=== PATIENT | female | born 1975 | race Caucasian/White ===

== ENCOUNTER 2016-11-05 15:15 | Emergency (ER) | payer OTHER ==
[~2016-11-05] VITALS: Ht 170.2 cm; Wt 50.3 kg
[~2016-11-05 15:15] MED LIST: AZIT250T PO; NICO21DI12 TOP
[2016-11-05 15:20] VITALS: TEMP 37.1; Ht 170.2 cm; Wt 50.3 kg
[2016-11-05] MEDS ORDERED: HYDROmorphone INJ 2 MG/ML SYR/VIAL IM STA (15:42)
[2016-11-05] MEDS ORDERED: PROMETHAZINE HCL INJ 25 MG/ML 1 ML VIAL IM STA (15:42)
--- NOTE | 2016-11-05 16:06 | EMERGENCY ROOM VISIT NOTE ---
ED Visit Note First contact with patient: 15:32 CHIEF COMPLAINT: Migraine headache HISTORY OF PRESENT ILLNESS: This 41-year-old female patient presented to the emergency department ambulatory with a gradual onset of a severe generalized headache that started 5 days ago. The patient states the migraine is similar to their typical migraines. There has been associated photophobia, phonophobia, nausea and vomiting. The patient denies fever or chills recently, and there is no weakness or numbness of the extremities. There is no difficulty with speech or vision. No trauma to the head and no neck pain. The pain is severe, constant , and it is slowly increasing in severity. The patient rates the pain as throbbing and and 10/10. The patient has taken acetaminophen without relief. This is not the worst headache of the life and is similar to previous migraines. Previous imaging studies of the brain have been normal. REVIEW OF SYSTEMS: A review of systems was performed with positives and pertinent negatives listed in the history of present illness. All other systems were reviewed and are negative. ALLERGIES: Garlic, metronidazole, penicillins, sulfa drugs MEDICATIONS: See med list PMH: Migraine headaches, asthma, COPD SOCIAL HISTORY: The patient lives locally with her family. She is a smoker and admits to occasional alcohol use. PHYSICAL EXAM: Vital Signs: Reviewed Nurse's notes, vital signs stable. GENERAL : This is a 41-year-old female, who appears in pain, but non toxic in appearance and in no acute distress. MENTAL STATUS: Alert, oriented, and coherent. HEENT: Normocephalic. PERRLA. EOMI. Nares patent without nuchal rigidity. Tympanic membranes pearly perkins without erythema or effusion bilaterally. Mucous membranes moist. NECK: Supple, no nuchal rigidity, nontender, no lymphadenopathy. HEART: Regular rhythm and normal rate without murmurs, ectopy, gallops, or rubs. LUNGS: Clear to auscultation bilaterally without wheezes, rales or rhonchi. No dullness to percussion. No accessory muscle use. No retractions. SKIN: Normal. NEUROLOGICAL: Pupils are round, equal and react to light. The optic fundi are normal and the discs are flat. The patient moves all extremities well and the gait is normal. EMERGENCY DEPARTMENT COURSE: I examined the patient. The patient is on a 2 narcotic injection per month treatment plan for their migraines. The patient was given 2 mg Dilaudid IM and 25 mg Phenergan IM per their usual protocol. The differential diagnosis includes acute intracranial bleed, meningitis, encephalitis, mass or mass effect, sinusitis, infection, tumor, headache, temporal arteritis and carbon monoxide exposure, and migraine. The patient was discharged home in stable condition with her driving. DIAGNOSIS: Migraine headache Problem List Medical Problems: (1) Asthma Status: Chronic (2) Bronchitis Status: Resolved (3) Chronic obstructive lung disease Status: Chronic (4) emphysema Status: Chronic (5) Gastroparesis Status: Chronic (6) H/O endoscopy Status: Resolved (7) Irritable Bowel Syndrome Status: Chronic (8) Migraine Status: Chronic (9) Removal of ovarian cyst Status: Resolved Current/Historical Medications Scheduled Amitriptyline HCl (Amitriptyline HCl), 40 MG PO HS Bromocriptine Mesylate (Bromocriptine Mesylate), 2.5 MG PO BID Fluticasone Furoate-Vilanterol (Breo Ellipta), 2 PUFFS INH DAILY Mirtazapine (Remeron), 30 MG PO HS Montelukast Sod (Montelukast Sodium), 10 MG PO DAILY Paroxetine (Paroxetine HCl), 40 MG PO DAILY Ranitidine (Zantac), 300 MG PO HS Temazepam (Restoril), 30 MG PO HS Tiotropium [place] (Spiriva Handihaler), 1 CAP INH DAILY Scheduled PRN Acetaminophen (Extra Strength Acetaminop), 1,000 MG PO Q6H PRN for Pain Budesonide Soln (Pulmicort Respules 0.5MG/2ML), 1 VIAL NEB BID PRN for SOB/ Wheezing Doxycycline Hyclate (Doxycycline Hyclate), 100 MG PO BID PRN for RESCUE KIT Ipratropium-Albuterol (Duoneb), 1 VIAL NEB QID PRN for SOB/Wheezing Potassium Chloride (Micro-K Ext Rel), 10 MEQ PO DAILY PRN for PRN Allergies Coded Allergies: Metronidazole (Verified Allergy, Intermediate, RASH, 10/09/16) Penicillins (Verified Allergy, Intermediate, RASH, 10/09/16) Sulfa Drugs (Verified Allergy, Unknown, HIVES, 10/09/16) Garlic (Verified Adverse Reaction, Mild, GI SYMPTOMS, 10/09/16) Pt states that she avoids garlic in foods because it causes nausea Vital Signs Date Time Temp Pulse Resp B/P Pulse Ox O2 Delivery O2 Flow Rate FiO2 11/05/16 15:20 37.1 103 17 119/79 100 Room Air Medications Administered Medications (Trade) Dose Ordered Sig/Susan Route Start Time Stop Time Status Last Admin Dose Admin Hydromorphone HCl (Dilaudid Inj) 2 mg NOW STAT IM 11/05/16 15:42 11/05/16 15:44 DC 11/05/16 15:54 2 MG Promethazine HCl (Phenergan Inj) 25 mg NOW STAT IM 11/05/16 15:42 11/05/16 15:44 DC 11/05/16 15:54 25 MG Departure Information Impression Primary Impression: Migraine Dispostion Home / Self-Care Condition GOOD Referrals No Doctor, Assigned (PCP) Patient Instructions A Signature Page, [facility] Additional Instructions You have been treated in the Emergency Department for a Headache. You have received pain medicine in the emergency department which impairs your ability to operate a vehicle. It is illegal for you to drive after receiving these medicines. Follow-up with your primary care provider and neurologist as scheduled. Return to the Emergency Department if your current symptoms worsen despite treatment course outlined above, or if you develop any of the following symptoms : intractable pain despite aforementioned treatment course, visual disturbances , loss of vision, unilateral weakness or facial drooping, slurring of speech, loss of coordination, or loss of consciousness.
[2016-11-05 16:32] VITALS: BP 123/75; PULSE 75; O2SAT 100
[2016-11-05] MEDS ORDERED: BUDE0.5S NEB (17:11)
[2016-11-05] MEDS ORDERED: DOXY1TAB6 PO (17:11)
[2016-11-05] MEDS ORDERED: IPRASOL4 NEB (17:11)
[2016-11-05] MEDS ORDERED: POTA10CA28 PO (17:20)
[2016-11-05] MEDS ORDERED: AMT10 PO (17:37)
[2016-11-05] MEDS ORDERED: PRX/40 PO (17:37)
[2016-11-05] MEDS ORDERED: SPRIN/30 INH (17:37)
[2016-11-05] MEDS ORDERED: FLUT1INH INH (17:37)
[2016-11-05] MEDS ORDERED: MIRT30TA3 PO (17:37)
[2016-11-05] MEDS ORDERED: SNG10 PO (17:37)
[2016-11-05] MEDS ORDERED: RST/30 PO (19:05)
[2016-11-05] MEDS ORDERED: RANI300T2 PO (20:55)
[2016-11-05] MEDS ORDERED: ACET500C14 PO (21:12)
[2017-05-05] MEDS ORDERED: MIRT15TA3 PO (13:59)
[2017-05-05] MEDS ORDERED: PRT/40 PO (16:52)
[2017-05-05] MEDS ORDERED: POLY335019 PO (18:59)
[2017-05-05] MEDS ORDERED: ALBU18002 INH (18:59)
[2017-05-05] MEDS ORDERED: ALUM-80 PO (18:59)
[2017-05-05] MEDS ORDERED: IPRASOL4 INH (18:59)
[2017-05-05] MEDS ORDERED: MAGN400T6 PO (18:59)
[2017-05-05] MEDS ORDERED: MULT-506 PO (18:59)
[2017-05-05] MEDS ORDERED: RIBO1TAB4 PO (18:59)
[2017-05-05] MEDS ORDERED: CALC500C3 PO (18:59)
[2017-05-05] MEDS ORDERED: PRLD25 PO (21:32)
== END 2016-11-05 16:34 | disposition home or self-care (01) ==
LOC: C.EDB 15:16 → C.EDD 16:34
DX: G43.909 Migraine, unspecified, not intractable, without status migrainosus (principal); J44.9 Chronic obstructive pulmonary disease, unspecified; F17.210 Nicotine dependence, cigarettes, uncomplicated; K31.84 Gastroparesis; K58.9 Irritable bowel syndrome, unspecified; Z79.899 Other long term (current) drug therapy

== ENCOUNTER 2016-12-01 13:15 | Emergency (ER) | payer OTHER ==
[~2016-12-01] VITALS: Ht 170.2 cm; Wt 50.8 kg
[~2016-12-01 13:15] MED LIST changes: +ACET500C14 PO; +AMT10 PO; -AZIT250T PO; +BUDE0.5S NEB; +DOXY1TAB6 PO; +FLUT1INH INH; +IPRASOL4 NEB; +MIRT30TA3 PO; -NICO21DI12 TOP; +POTA10CA28 PO; +PRX/40 PO; +RANI300T2 PO; +RST/30 PO; +SNG10 PO; +SPRIN/30 INH
[2016-12-01 13:21] VITALS: TEMP 36.5; Ht 170.2 cm; Wt 50.8 kg
[2016-12-01] MEDS ORDERED: PROMETHAZINE HCL INJ 25 MG/ML 1 ML VIAL IM STA (13:36)
[2016-12-01] MEDS ORDERED: HYDROmorphone INJ 2 MG/ML SYR/VIAL IM ONE (13:45)
[2016-12-01] MEDS ORDERED: PARO10TA PO (13:59)
[2016-12-01] MEDS ORDERED: TOPI25TA10 PO ×2 (14:00)
[2016-12-01] MEDS ORDERED: PANT1TAB48 PO (14:00)
[2016-12-01 14:20] VITALS: BP 118/76; PULSE 78; O2SAT 99
--- NOTE | 2016-12-02 12:54 | EMERGENCY ROOM VISIT NOTE ---
ED Visit Note First contact with patient: 13:22 CHIEF COMPLAINT: Migraine headache. HISTORY OF PRESENT ILLNESS: Ms. Castillo is a 41 year-old white female who ambulates into the ED accompanied by her complaining of a migraine headache. She reports a gradual onset of a severe migraine headache that started approximately 14 days ago. Her discomfort was initially mild but has gradually increased in intensity. Similar to her previous migraine headaches and not the worst headache of the life. Currently she describes the headache as a throbbing sensation/pain in the bifrontal area. She rates the pain a 10/10. The pain is nonradiating. She has not identified any aggravating or alleviating factors related to the pain. She reports she was recently started on Topamax for her migraine headaches by a new primary care provider but has had no relief and feel the symptoms are getting worse. There is been associated light sensitivity, nausea and has had vomiting. She denies chills, sweats, sore throat, sinus drainage/congestion, shortness of breath, wheezing, difficulty breathing, chest pain/discomfort, weakness/ numbness of the extremities, genital paresthesias, bowel and bladder dysfunction , hematuria, difficulty with speech, hearing or vision, trauma to the head. REVIEW OF SYSTEMS: As noted above in History of Present Illness. All body systems were reviewed with this patient and found to be negative unless noted above otherwise. PAST MEDICAL HISTORY: Asthma, COPD, bronchitis, gastroparesis, irritable bowel syndrome. CURRENT MEDICATIONS: Medications Dose Route/Sig Max Daily Dose Days Date Category Dose Instructions Topamax (Topiramate) 25 Mg Tab 1 Tab PO QPM 30 12/01/16 Reported Topamax (Topiramate) 25 Mg Tab 2 Tab PO QAM 30 12/01/16 Reported Protonix (Pantoprazole) 40 Mg Tab 40 Mg PO BID 12/01/16 Reported Paxil (Paroxetine Hcl) 10 Mg Tab 10 Mg PO DAILY 12/01/16 Reported Remeron (Mirtazapine) 15 Mg Tab 15 Mg PO HS 12/01/16 Reported Extra Strength Acetaminop (Acetaminophen) 500 Mg Cap 1,000 Mg PO Q6H PRN 06/11/16 Reported Micro-K Ext Rel (Potassium Chloride) 10 Meq Capcr 10 Meq PO DAILY PRN 05/03/16 Reported Zantac (Ranitidine HCl) 300 Mg Tab 300 Mg PO HS 02/16/16 Reported Duoneb (Ipratropium-Albuterol) 3 Ml Nebu 1 Vial NEB QID PRN 09/15/15 Reported Pulmicort Respules 0.5MG/2ML (Budesonide) Nebu 1 Vial NEB BID PRN 09/15/15 Reported MIX WITH DUONEB. Bromocriptine Mesylate 2.5 Mg Tab 2.5 Mg PO BID 08/11/15 Reported Breo Ellipta (Fluticasone Furoate-Vilanterol) 1 Inh Inh 2 Puffs INH DAILY 08/04/15 Reported RINSE MOUTH AFTER USE. Spiriva Handihaler (Tiotropium [place]) 30 Puff/540 Mcg Aerp 1 Cap INH DAILY 08/04/15 Reported ALLERGIES TO MEDICATIONS: Sulfa, penicillin, metronidazole. SOCIAL HISTORY: Patient is not currently employed; she lives with her and feels safe in her home environment; she admits to tobacco use and denies alcohol use. PHYSICAL EXAM: Vital Signs: Date Time Temp Pulse Resp B/P Pulse Ox O2 Delivery O2 Flow Rate FiO2 12/01/16 14:20 78 15 118/76 99 12/01/16 13:21 36.5 110 16 129/83 95 Room Air GENERAL: 41 year-old white female in moderate distress due to pain, afebrile and hemodynamically stable found lying in a darkened room accompanied by her . NEUROLOGIC: Awake, alert and oriented to person place and time. Answering questions appropriately and following commands. Cranial nerves II-XII grossly intact. No focal neurologic deficits noted. Normal gait. SKIN: Warm, dry and pink. No rashes, lesions or soft tissue trauma noted. HEENT: Normocephalic, atraumatic. No erythema or tenderness over the frontal maxillary sinuses. External and ears are nontender and auditory canals are pink and patent. Tympanic membrane is pearly perkins with normal light reflex. PERRLA. EOMI without nystagmus. Funduscopic examination deferred due to patient's light sensitivity. Sclerae white and conjunctiva pink without drainage. Uvula is midline and no abscesses are seen. No posterior pharyngeal erythema or edema. Normal speech. Airway patent. No JVD. Trachea midline. NECK: No tenderness over the cervical bony spine. Full range of motion of the cervical spine. No nuchal rigidity. THORAX: Lungs clear to auscultation and equal bilaterally with no wheezing, crackles, rhonchi or stridor and equal chest wall movements. HEART: Regular rate and rhythm with no murmurs, rubs or gallops. ABDOMEN: Flat and soft with mild diffuse tenderness; similar to prior examinations. Positive bowel sounds present in all quadrants; no rigidity, rebound tenderness, organomegaly or guarding. BACK: No tenderness over the bony thoracic or lumbar spine. No CVA tenderness. MUSCULOSKELETAL: Full range of motion of all joints without any significant discomfort and the gait is normal. ED COURSE: Patient is assessed with history and physical examination. Patient is currently on her treatment plan of 2 shots per month and this is her first visit. She received 2 mg of Dilaudid IM and 25 mg of Phenergan IM for pain and nausea. Patient was reassessed. Patient was educated about her condition and instructed on her treatment plan; she verbalized understanding and agreement with this plan. CLINICAL IMPRESSION: Acute migraine headache. 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 She is afebrile, well appearing, and hemodynamically stable. She has no signs of a dental, or ear infection and no evidence of meningismus. She is neurologically intact. I do not suspect a headache to be secondary to a subarachnoid hemorrhage, meningitis, encephalitis, or intracranial mass lesion. DISPOSITION: Patient was discharged to home in stable condition accompanied by her ; prior to discharge she was reassessed and reported that she was feeling better and rated her discomfort 7/10. DISCHARGE INSTRUCTIONS: Rest at home, in a quiet darkened room and allow the medication to work for the pain. Continue to follow up current treatment plan prescribed by your physician for your migraine headaches. See your own doctor in follow-up this week for continued care and treatment for her migraine headaches. Return to the ED as needed for worsening/uncontrolled pain, fever, uncontrolled vomiting, any abnormal neurological symptoms or any other concerning symptoms.
[2017-05-05] MEDS ORDERED: MIRT15TA3 PO (13:59)
[2017-05-05] MEDS ORDERED: PRT/40 PO (16:52)
[2017-05-05] MEDS ORDERED: IPRASOL4 INH (18:59)
[2017-05-05] MEDS ORDERED: ALUM-80 PO (18:59)
[2017-05-05] MEDS ORDERED: ALBU18002 INH (18:59)
[2017-05-05] MEDS ORDERED: MULT-506 PO (18:59)
[2017-05-05] MEDS ORDERED: POLY335019 PO (18:59)
[2017-05-05] MEDS ORDERED: RIBO1TAB4 PO (18:59)
[2017-05-05] MEDS ORDERED: MAGN400T6 PO (18:59)
[2017-05-05] MEDS ORDERED: CALC500C3 PO (18:59)
[2017-05-05] MEDS ORDERED: PRLD25 PO (21:32)
== END 2016-12-01 14:21 | disposition home or self-care (01) ==
LOC: C.EDB 13:17 → C.EDD 14:21
DX: G43.909 Migraine, unspecified, not intractable, without status migrainosus (principal); F17.200 Nicotine dependence, unspecified, uncomplicated; J45.909 Unspecified asthma, uncomplicated; J44.9 Chronic obstructive pulmonary disease, unspecified; Z79.899 Other long term (current) drug therapy

== ENCOUNTER 2016-12-20 17:42 | Emergency (ER) | payer OTHER ==
[~2016-12-20] VITALS: Ht 171.5 cm; Wt 52.2 kg
[~2016-12-20 17:42] MED LIST changes: -AMT10 PO; -DOXY1TAB6 PO; -MIRT30TA3 PO; +PANT1TAB48 PO; +PARO10TA PO; -PRX/40 PO; -RST/30 PO; -SNG10 PO; +TOPI25TA10 PO
[2016-12-20 17:47] VITALS: TEMP 37.1; Ht 171.5 cm; Wt 52.2 kg
[2016-12-20] MEDS ORDERED: PROMETHAZINE HCL INJ 25 MG/ML 1 ML VIAL IM STA (18:06)
[2016-12-20] MEDS ORDERED: HYDROmorphone INJ 1 MG/ML SYR IM ONE (18:15)
--- NOTE | 2016-12-20 18:39 | EMERGENCY ROOM VISIT NOTE ---
ED Visit Note First contact with patient: 17:49 CHIEF COMPLAINT: Migraine headache HISTORY OF PRESENT ILLNESS: This 39-year-old female patient presented to the emergency department with her relative with a gradual onset of a severe generalized headache that started Friday. The patient states the migraine is similar to their typical migraines. There has been associated photophobia, phonophobia, nausea and vomiting. The patient denies fever or chills recently, and there is no weakness or numbness of the extremities. There is no difficulty with speech or vision. No trauma to the head and no neck pain. The pain is severe, constant, and it is slowly increasing in severity. The patient rates the pain as constant and 10/10. The patient has taken ibuprofen without relief. This is not the worst headache of the life and is similar to previous migraines. Previous imaging studies of the brain have been normal. REVIEW OF SYSTEMS: A review of systems was performed with positives and pertinent negatives listed in the history of present illness. All other systems were reviewed and are negative. ALLERGIES: Garlic, Flagyl, penicillins, sulfa drugs MEDICATIONS: Reviewed and discussed with the patient. PMH: Migraine headaches SOCIAL HISTORY: Patient is a 39-year-old female who lives with family. PHYSICAL EXAM: VITAL SIGNS - Vital signs and nursing notes were reviewed. GENERAL - 39-year-old female appearing her stated age who is in no acute distress. Communicates well with provider and answers questions appropriately. HEAD - Normocephalic, Atraumatic. No Laws's Sign or Raccoon's Eyes. No depressed skull fractures palpable. EYES - PERRL with EOMI bilaterally. Sclera anicteric. Palpebral conjunctiva pink and moist with no injection noted. EARS - No deformities of external structures noted on gross examination bilaterally. No pain elicited with palpation of the tragus bilaterally. External auditory canals without discharge or otorrhea. Tympanic membranes pearly perkins without retraction or bulging. No fluid or purulent material visualized behind the TM. Handle of malleus, umbo, cone of light, pars tensa/ flaccid all easily visualized. NOSE - Midline and without cyanosis. No epistaxis or purulent drainage noted. Septum midline without deviation or septal hematoma noted. MOUTH/OROPHARYNX - Without perioral cyanosis. Buccal mucosa pink and moist and without leukoplakia. Tongue midline with equal elevation of palate bilaterally. No tonsillar hypertrophy, erythema, or exudates noted. NECK - Neck with FROM. Supple to palpation. No lymphadenopathy noted. No nuchal rigidity. LUNGS - Chest wall symmetric without accessory muscle use, intercostals retractions, or central cyanosis. Normal vesicular breath sounds CTA B/L. No wheezes, rales, or rhonchi appreciated. CARDIAC - RRR with S1/S2. No murmur, rubs, or gallops appreciated. ABDOMEN - Abdominal contour flat without pulsations or visible masses. BS normoactive all four quadrants. No tenderness, palpable masses, hepatosplenomegaly, or ascites noted. EXTREMITIES - No pretibial edema present. +3/5 radial and dorsalis pedis pulses palpated throughout. FROM with no tremors, fasciculations, or clonus noted on PROM throughout. +5/5 strength noted in UE/LE bilaterally. NEUROLOGIC - Cranial nerves II through XII grossly intact. Sensory intact to light touch throughout. Patellar reflexes +2/4. Patient able to perform rapid alternating movements appropriately. Negative Drift. PSYCH - A&Ox3 and cooperates fully with examiner. Pt is very pleasant and interacts well with examiner. EMERGENCY DEPARTMENT COURSE: I examined the patient. The patient is on a narcotic injection per month treatment plan for their migraines. The patient was given 1 mg Dilaudid and 25 mg Phenergan intramuscularly per their usual protocol. The differential diagnosis includes acute intracranial bleed, meningitis, encephalitis, mass or mass effect, sinusitis, infection, tumor, headache, temporal arteritis and carbon monoxide exposure, and migraine. The patient was discharged home in stable condition with her family member driving. DIAGNOSIS: Migraine headache DISCHARGE INSTRUCTIONS & TREATMENT: You have been treated in the Emergency Department for a Headache. You have received pain medicine in the emergency department which impairs your ability to operate a vehicle. It is illegal for you to drive after receiving these medicines. For pain control, you can use the following [id number] medicines (if >12 yo): - Regular strength (325mg/tab) Tylenol (acetaminophen) 2 tabs every 4-6 hours as needed. Do not exceed 12 tablets in a 24 hour period. Avoid taking more than 4 grams (4000 mg) of Tylenol per day. This includes any other sources of acetaminophen you may take on a regular basis. - Regular strength (200 mg/tab) Advil (ibuprofen) 1-2 tabs every 4-6 hours as needed. Do not exceed a dose of 3200 mg per day. You should relax in a quiet, dark place for the rest of the day. Avoid any possible triggers including: cigarette smoke, caffeine, nicotine, chocolate, wine, beer, loud noises or music, or bright lights. You should schedule a follow-up appointment in 2-3 days with your Primary Care Provider or established Neurologist for further evaluation and treatment of your Headache. Return to the Emergency Department if your current symptoms worsen despite treatment course outlined above, or if you develop any of the following symptoms : intractable pain despite aforementioned treatment course, visual disturbances , loss of vision, unilateral weakness or facial drooping, slurring of speech, loss of coordination, or loss of consciousness. Problem List Medical Problems: (1) Asthma Status: Chronic (2) Bronchitis Status: Resolved (3) Chronic obstructive lung disease Status: Chronic (4) emphysema Status: Chronic (5) Gastroparesis Status: Chronic (6) H/O endoscopy Status: Resolved (7) Irritable Bowel Syndrome Status: Chronic (8) Migraine Status: Chronic (9) Removal of ovarian cyst Status: Resolved Current/Historical Medications Scheduled Bromocriptine Mesylate (Bromocriptine Mesylate), 2.5 MG PO BID Fluticasone Furoate-Vilanterol (Breo Ellipta), 2 PUFFS INH DAILY Mirtazapine (Remeron), 15 MG PO HS Pantoprazole (Protonix), 40 MG PO BID Paroxetine Hcl (Paxil), 10 MG PO DAILY Ranitidine (Zantac), 300 MG PO HS Tiotropium [place] (Spiriva Handihaler), 1 CAP INH DAILY Topiramate (Topamax), 2 TAB PO QAM Topiramate (Topamax), 1 TAB PO QPM Scheduled PRN Acetaminophen (Extra Strength Acetaminop), 1,000 MG PO Q6H PRN for Pain Budesonide Soln (Pulmicort Respules 0.5MG/2ML), 1 VIAL NEB BID PRN for SOB/ Wheezing Ipratropium-Albuterol (Duoneb), 1 VIAL NEB QID PRN for SOB/Wheezing Potassium Chloride (Micro-K Ext Rel), 10 MEQ PO DAILY PRN for PRN Allergies Coded Allergies: Metronidazole (Verified Allergy, Intermediate, RASH, 12/20/16) Penicillins (Verified Allergy, Intermediate, RASH, 12/20/16) Sulfa Drugs (Verified Allergy, Unknown, HIVES, 12/20/16) Garlic (Verified Adverse Reaction, Mild, GI SYMPTOMS, 12/20/16) Pt states that she avoids garlic in foods because it causes nausea Vital Signs Date Time Temp Pulse Resp B/P Pulse Ox O2 Delivery O2 Flow Rate FiO2 12/20/16 18:44 76 16 119/76 100 Room Air 12/20/16 17:47 37.1 116 17 106/67 99 Room Air Medications Administered Medications (Trade) Dose Ordered Sig/Susan Route Start Time Stop Time Status Last Admin Dose Admin Hydromorphone HCl (Dilaudid Inj) 1 mg NOW ONCE IM 12/20/16 18:15 12/20/16 18:16 DC 12/20/16 18:11 1 MG Promethazine HCl (Phenergan Inj) 25 mg NOW STAT IM 12/20/16 18:06 12/20/16 18:07 DC 12/20/16 18:11 25 MG Departure Information Impression Primary Impression: Migraine Dispostion Home / Self-Care Condition GOOD Referrals No Doctor, Assigned (PCP) Patient Instructions ED Headache Migraine, [facility] Additional Instructions You have been treated in the Emergency Department for a Headache. You have received pain medicine in the emergency department which impairs your ability to operate a vehicle. It is illegal for you to drive after receiving these medicines. For pain control, you can use the following [id number] medicines (if >12 yo): - Regular strength (325mg/tab) Tylenol (acetaminophen) 2 tabs every 4-6 hours as needed. Do not exceed 12 tablets in a 24 hour period. Avoid taking more than 4 grams (4000 mg) of Tylenol per day. This includes any other sources of acetaminophen you may take on a regular basis. - Regular strength (200 mg/tab) Advil (ibuprofen) 1-2 tabs every 4-6 hours as needed. Do not exceed a dose of 3200 mg per day. You should relax in a quiet, dark place for the rest of the day. Avoid any possible triggers including: cigarette smoke, caffeine, nicotine, chocolate, wine, beer, loud noises or music, or bright lights. You should schedule a follow-up appointment in 2-3 days with your Primary Care Provider or established Neurologist for further evaluation and treatment of your Headache. Return to the Emergency Department if your current symptoms worsen despite treatment course outlined above, or if you develop any of the following symptoms : intractable pain despite aforementioned treatment course, visual disturbances , loss of vision, unilateral weakness or facial drooping, slurring of speech, loss of coordination, or loss of consciousness. Problem Qualifiers Primary Impression: Migraine Migraine type: unspecified Status migrainosus presence: without status migrainosus Intractability: not intractable Qualified Codes: G43.909 - Migraine, unspecified, not intractable, without status migrainosus
[2016-12-20 18:44] VITALS: BP 119/76; PULSE 76; O2SAT 100
[2017-05-05] MEDS ORDERED: MIRT15TA3 PO (13:59)
[2017-05-05] MEDS ORDERED: PRT/40 PO (16:52)
[2017-05-05] MEDS ORDERED: RIBO1TAB4 PO (18:59)
[2017-05-05] MEDS ORDERED: MULT-506 PO (18:59)
[2017-05-05] MEDS ORDERED: ALBU18002 INH (18:59)
[2017-05-05] MEDS ORDERED: MAGN400T6 PO (18:59)
[2017-05-05] MEDS ORDERED: CALC500C3 PO (18:59)
[2017-05-05] MEDS ORDERED: ALUM-80 PO (18:59)
[2017-05-05] MEDS ORDERED: IPRASOL4 INH (18:59)
[2017-05-05] MEDS ORDERED: POLY335019 PO (18:59)
[2017-05-05] MEDS ORDERED: PRLD25 PO (21:32)
== END 2016-12-20 18:45 | disposition home or self-care (01) ==
LOC: C.EDB 17:43 → C.EDD 18:45
DX: G43.909 Migraine, unspecified, not intractable, without status migrainosus (principal); J45.909 Unspecified asthma, uncomplicated; J43.9 Emphysema, unspecified; K31.84 Gastroparesis; K58.9 Irritable bowel syndrome, unspecified; Z79.899 Other long term (current) drug therapy

== ENCOUNTER 2017-01-03 17:08 | Emergency (ER) | payer OTHER ==
[~2017-01-03] VITALS: Ht 170.2 cm; Wt 51.6 kg
[2017-01-03 17:19] VITALS: TEMP 37.6; Ht 170.2 cm; Wt 51.6 kg
[2017-01-03] MEDS ORDERED: PROMETHAZINE HCL INJ 25 MG/ML 1 ML VIAL IM STA (17:34)
[2017-01-03] MEDS ORDERED: HYDROmorphone INJ 1 MG/ML SYR IM STA (17:34)
--- NOTE | 2017-01-03 17:34 | EMERGENCY ROOM VISIT NOTE ---
ED Visit Note First contact with patient: 17:27 CHIEF COMPLAINT: Migraine headache HISTORY OF PRESENT ILLNESS: This 41-year-old female patient presented to the emergency department with a gradual onset of a severe generalized headache that started today. There has been associated photophobia, phonophobia, nausea and vomiting. The patient denies fever or chills recently, and there is no weakness or numbness of the extremities. There is no difficulty with speech or vision. No trauma to the head and no neck pain. The pain is severe, constant, and it is slowly increasing in severity. The patient rates the pain as sharp and 8/10. The patient has taken nothing. This is not the worst headache of the life and is similar to previous migraines. Previous imaging studies of the brain (CT scans) have been normal. REVIEW OF SYSTEMS: An 8 system review of systems was completed with positives and pertinent negatives listed in the HPI. ALLERGIES: Garlic, metronidazole, penicillin, sulfa MEDICATIONS: Unchanged and previous PMH: Unchanged from previous SOCIAL HISTORY: The patient is a smoker. She lives locally PHYSICAL EXAM: Vital Signs: Reviewed Nurse's notes, vital signs stable. MENTAL STATUS: Alert, oriented, and coherent. In great distress from the headache. NECK : Supple, no nuchal rigidity, nontender, no lymphadenopathy. HEART: Regular rhythm and normal rate without murmurs, ectopy, gallops, or rubs. SKIN: Normal. NEUROLOGICAL: Pupils are round, equal and react to light. The optic fundi are normal and the discs are flat. EOMs are full and there is no nystagmus. The patient moves all extremities well and the gait is normal. EMERGENCY DEPARTMENT COURSE: I examined the patient. She is well known to the ED. She is on a two shot per month treatment plan. This is her first visit for the month. The patient was given 1 mg IM Dilaudid and 25 mg IM Phenergan with relief of their pain. The differential diagnosis includes acute intracranial bleed, meningitis, encephalitis, mass or mass effect, sinusitis, infection, tumor, headache, temporal arteritis and carbon monoxide exposure, and migraine. The patient was discharged home in stable condition with a long haul truck driver. DIAGNOSIS: Migraine headache DISCHARGE INSTRUCTIONS & TREATMENT: Rest at home, resume prescription medications. See your own doctor in follow-up. Problem List Medical Problems: (1) Asthma Status: Chronic (2) Bronchitis Status: Resolved (3) Chronic obstructive lung disease Status: Chronic (4) emphysema Status: Chronic (5) Gastroparesis Status: Chronic (6) H/O endoscopy Status: Resolved (7) Irritable Bowel Syndrome Status: Chronic (8) Migraine Status: Chronic (9) Removal of ovarian cyst Status: Resolved Current/Historical Medications Scheduled Bromocriptine Mesylate (Bromocriptine Mesylate), 2.5 MG PO BID Fluticasone Furoate-Vilanterol (Breo Ellipta), 2 PUFFS INH DAILY Mirtazapine (Remeron), 15 MG PO HS Pantoprazole (Protonix), 40 MG PO BID Paroxetine Hcl (Paxil), 10 MG PO DAILY Ranitidine (Zantac), 300 MG PO HS Tiotropium Lolo (Spiriva Handihaler), 1 CAP INH DAILY Topiramate (Topamax), 2 TAB PO QAM Topiramate (Topamax), 1 TAB PO QPM Scheduled PRN Acetaminophen (Extra Strength Acetaminop), 1,000 MG PO Q6H PRN for Pain Budesonide Soln (Pulmicort Respules 0.5MG/2ML), 1 VIAL NEB BID PRN for SOB/ Wheezing Ipratropium-Albuterol (Duoneb), 1 VIAL NEB QID PRN for SOB/Wheezing Potassium Chloride (Micro-K Ext Rel), 10 MEQ PO DAILY PRN for PRN Allergies Coded Allergies: Metronidazole (Verified Allergy, Intermediate, RASH, 01/03/17) Penicillins (Verified Allergy, Intermediate, RASH, 01/03/17) Sulfa Drugs (Verified Allergy, Unknown, HIVES, 01/03/17) Garlic (Verified Adverse Reaction, Mild, GI SYMPTOMS, 01/03/17) Pt states that she avoids garlic in foods because it causes nausea Vital Signs Date Time Temp Pulse Resp B/P Pulse Ox O2 Delivery O2 Flow Rate FiO2 01/03/17 17:50 87 18 127/79 100 01/03/17 17:19 37.6 108 18 135/85 100 Room Air Medications Administered Medications (Trade) Dose Ordered Sig/Susan Route Start Time Stop Time Status Last Admin Dose Admin Hydromorphone HCl (Dilaudid Inj) 1 mg ONE STAT IM 01/03/17 17:34 01/03/17 17:35 DC 01/03/17 18:07 1 MG Promethazine HCl (Phenergan Inj) 25 mg NOW STAT IM 01/03/17 17:34 01/03/17 17:35 DC 01/03/17 17:34 25 MG Departure Information Impression Primary Impression: Migraine Dispostion Home / Self-Care Condition GOOD Referrals No Doctor, Assigned (PCP) Patient Instructions ED Headache Migraine, [facility] Additional Instructions Rest at home, resume prescription medications. See your own doctor in follow- up. Problem Qualifiers Primary Impression: Migraine
[2017-01-03 17:50] VITALS: BP 127/79; PULSE 87; O2SAT 100
[2017-05-05] MEDS ORDERED: MIRT15TA3 PO (13:59)
[2017-05-05] MEDS ORDERED: PRT/40 PO (16:52)
[2017-05-05] MEDS ORDERED: ALBU18002 INH (18:59)
[2017-05-05] MEDS ORDERED: IPRASOL4 INH (18:59)
[2017-05-05] MEDS ORDERED: RIBO1TAB4 PO (18:59)
[2017-05-05] MEDS ORDERED: MULT-506 PO (18:59)
[2017-05-05] MEDS ORDERED: CALC500C3 PO (18:59)
[2017-05-05] MEDS ORDERED: POLY335019 PO (18:59)
[2017-05-05] MEDS ORDERED: ALUM-80 PO (18:59)
[2017-05-05] MEDS ORDERED: MAGN400T6 PO (18:59)
[2017-05-05] MEDS ORDERED: PRLD25 PO (21:32)
== END 2017-01-03 17:50 | disposition home or self-care (01) ==
LOC: C.EDB 17:11 → C.EDD 17:50
DX: G43.909 Migraine, unspecified, not intractable, without status migrainosus (principal); F17.200 Nicotine dependence, unspecified, uncomplicated; J45.909 Unspecified asthma, uncomplicated; J44.9 Chronic obstructive pulmonary disease, unspecified; K58.9 Irritable bowel syndrome, unspecified

== ENCOUNTER 2017-01-12 23:47 | Emergency (ER) | payer OTHER ==
[~2017-01-12] VITALS: Ht 171.5 cm; Wt 50.9 kg
[2017-01-12 23:55] VITALS: Ht 171.5 cm; Wt 50.9 kg
[2017-01-13] MEDS ORDERED: HYDROmorphone INJ 1 MG/ML SYR IM STA (00:13)
[2017-01-13] MEDS ORDERED: PROMETHAZINE HCL INJ 25 MG/ML 1 ML VIAL IM STA (00:13)
--- NOTE | 2017-01-13 00:35 | EMERGENCY ROOM VISIT NOTE ---
ED Visit Note First contact with patient: 23:58 CHIEF COMPLAINT: Migraine headache HISTORY OF PRESENT ILLNESS: This 41-year-old female patient presented to the emergency department with a gradual onset of a severe generalized headache that started 3 days ago. The patient states the migraine is similar to their typical migraines. There has been associated photophobia, phonophobia, nausea and vomiting. The patient denies fever or chills recently, and there is no weakness or numbness of the extremities. There is no difficulty with speech or vision. No trauma to the head and no neck pain. The pain is severe, constant, and it is slowly increasing in severity. The patient rates the pain as dull and 9/10. The patient has taken Tylenol without relief. This is not the worst headache of the life and is similar to previous migraines. Previous imaging studies of the brain have been normal. REVIEW OF SYSTEMS: A review of systems was performed with positives and pertinent negatives listed in the history of present illness. All other systems were reviewed and are negative. ALLERGIES: See EMR MEDICATIONS: See EMR PMH: Chronic migraines SOCIAL HISTORY: Lives locally with family PHYSICAL EXAM: Vital Signs: Reviewed Nurse's notes, vital signs stable. GENERAL: White female, who appears in pain, but non toxic in appearance and in no acute distress. MENTAL STATUS: Alert, oriented, and coherent. HEENT: Normocephalic. PERRLA. EOMI. Nares patent without nuchal rigidity. Tympanic membranes pearly perkins without erythema or effusion bilaterally. Mucous membranes moist. NECK: Supple, no nuchal rigidity, nontender, no lymphadenopathy. HEART: Regular rhythm and normal rate without murmurs, ectopy, gallops, or rubs. LUNGS: Clear to auscultation bilaterally without wheezes, rales or rhonchi. No dullness to percussion. No accessory muscle use. No retractions. SKIN: Normal. NEUROLOGICAL: Pupils are round, equal and react to light. The optic fundi are normal and the discs are flat. The patient moves all extremities well and the gait is normal. EMERGENCY DEPARTMENT COURSE: I examined the patient. The patient is on a 2 narcotic injection per month treatment plan for their migraines. Today is her second visit of the month for treatment under her treatment plan. The patient was given 1 g IM Dilaudid and 25 mg IM Phenergan per their usual protocol. The differential diagnosis includes acute intracranial bleed, meningitis, encephalitis, mass or mass effect, sinusitis, infection, tumor, headache, temporal arteritis and carbon monoxide exposure, and migraine. The patient was discharged home in stable condition with a male landscaping crew leader driving. Problem List Medical Problems: (1) Asthma Status: Chronic (2) Bronchitis Status: Resolved (3) Chronic obstructive lung disease Status: Chronic (4) emphysema Status: Chronic (5) Gastroparesis Status: Chronic (6) H/O endoscopy Status: Resolved (7) Irritable Bowel Syndrome Status: Chronic (8) Migraine Status: Chronic (9) Removal of ovarian cyst Status: Resolved Current/Historical Medications Scheduled Bromocriptine Mesylate (Bromocriptine Mesylate), 2.5 MG PO BID Fluticasone Furoate-Vilanterol (Breo Ellipta), 2 PUFFS INH DAILY Mirtazapine (Remeron), 15 MG PO HS Pantoprazole (Protonix), 40 MG PO BID Paroxetine Hcl (Paxil), 10 MG PO DAILY Ranitidine (Zantac), 300 MG PO HS Tiotropium [place] (Spiriva Handihaler), 1 CAP INH DAILY Topiramate (Topamax), 50 MG PO QAM Topiramate (Topamax), 25 MG PO QPM Scheduled PRN Budesonide Soln (Pulmicort Respules 0.5MG/2ML), 1 VIAL NEB BID PRN for SOB/ Wheezing Ipratropium-Albuterol (Duoneb), 1 VIAL NEB QID PRN for SOB/Wheezing Potassium Chloride (Micro-K Ext Rel), 10 MEQ PO DAILY PRN for UNDECIDED Allergies Coded Allergies: Metronidazole (Verified Allergy, Intermediate, RASH, 01/03/17) Penicillins (Verified Allergy, Intermediate, RASH, 01/03/17) Sulfa Drugs (Verified Allergy, Unknown, HIVES, 01/03/17) Garlic (Verified Adverse Reaction, Mild, GI SYMPTOMS, 01/03/17) Pt states that she avoids garlic in foods because it causes nausea Vital Signs Date Time Temp Pulse Resp B/P Pulse Ox O2 Delivery O2 Flow Rate FiO2 01/12/17 23:55 Room Air Medications Administered Medications (Trade) Dose Ordered Sig/Susan Route Start Time Stop Time Status Last Admin Dose Admin Hydromorphone HCl (Dilaudid Inj) 1 mg NOW STAT IM 01/13/17 00:13 01/13/17 00:14 DC 01/13/17 00:21 1 MG Promethazine HCl (Phenergan Inj) 25 mg NOW STAT IM 01/13/17 00:13 01/13/17 00:14 DC 01/13/17 00:21 25 MG Departure Information Impression Primary Impression: Headache Dispostion Home / Self-Care Condition GOOD Referrals No Doctor, Assigned (PCP) Forms HOME CARE DOCUMENTATION FORM, IMPORTANT VISIT INFORMATION Patient Instructions My [facility] Additional Instructions You were seen and evaluated today on an emergency basis only. This is not a substitute for, or an effort to provide, complete comprehensive medical care. It is not possible to recognize and treat all injuries or illnesses in a single emergency department visit. For this reason it is recommended that you followup with your primary care physician or neurologist this week for ongoing care and evaluation. DO NOT drive, drink alcohol, operate machinery, or perform dangerous activities today. You were given medications in the ER that can affect your ability to safely function or operate a vehicle. Rest today in a quiet, peaceful, dark environment and get a full 8-10 hrs of sleep tonight. Avoid loud noises, smoke/smoking, alcohol, bright lights, stress, or physical exertion today to minimize the chance the headache may return. Continue current medications. Ibuprofen(Motrin, Advil) may be used for fever or pain. Use 600mg every six hours as needed. Take with food. Avoid using more than 2400mg in a 24 hour period. Do not use 2400mg per day for more than three consecutive days without physician direction. Prolonged inappropriate use can lead to stomach upset or ulcers. (AND/OR) Acetaminophen(Tylenol) may be used for fever or pain. Use 1000mg every six hours as needed. Avoid using more than 4000mg in a 24 hour period. Return to the ER for passing out, worsening headache, vision problems, neck stiffness/pain, fevers, vomiting, worsening of your condition, or as needed.
[2017-05-05] MEDS ORDERED: MIRT15TA3 PO (13:59)
[2017-05-05] MEDS ORDERED: PRT/40 PO (16:52)
[2017-05-05] MEDS ORDERED: RIBO1TAB4 PO (18:59)
[2017-05-05] MEDS ORDERED: POLY335019 PO (18:59)
[2017-05-05] MEDS ORDERED: CALC500C3 PO (18:59)
[2017-05-05] MEDS ORDERED: MAGN400T6 PO (18:59)
[2017-05-05] MEDS ORDERED: ALUM-80 PO (18:59)
[2017-05-05] MEDS ORDERED: ALBU18002 INH (18:59)
[2017-05-05] MEDS ORDERED: MULT-506 PO (18:59)
[2017-05-05] MEDS ORDERED: IPRASOL4 INH (18:59)
[2017-05-05] MEDS ORDERED: PRLD25 PO (21:32)
== END 2017-01-13 00:30 | disposition home or self-care (01) ==
LOC: C.EDB 23:49 → C.EDC 01-13 00:30
DX: G43.909 Migraine, unspecified, not intractable, without status migrainosus (principal); J45.909 Unspecified asthma, uncomplicated; J44.9 Chronic obstructive pulmonary disease, unspecified; K58.9 Irritable bowel syndrome, unspecified

== ENCOUNTER 2017-02-03 17:33 | Emergency (ER) | payer OTHER ==
[~2017-02-03] VITALS: Ht 170.2 cm; Wt 50.2 kg
[~2017-02-03 17:33] MED LIST changes: -ACET500C14 PO
[2017-02-03 17:49] VITALS: TEMP 37; Ht 170.2 cm; Wt 50.2 kg
[2017-02-03] MEDS ORDERED: HYDROmorphone INJ 1 MG/ML SYR IM STA (18:27)
[2017-02-03] MEDS ORDERED: PROMETHAZINE HCL INJ 25 MG/ML 1 ML VIAL IM STA (18:27)
--- NOTE | 2017-02-03 18:32 | EMERGENCY ROOM VISIT NOTE ---
ED Visit Note First contact with patient: 18:21 CHIEF COMPLAINT: "Migraine, nausea, vomiting". HISTORY OF PRESENT ILLNESS: This 41-year-old female patient presented to the emergency department via private vehicle with a gradual onset of a severe generalized headache that started Misael morning. The patient states the migraine is similar to their typical migraines. There has been associated photophobia, phonophobia, nausea and vomiting. The patient denies fever or chills recently, and there is no weakness or numbness of the extremities. There is no difficulty with speech or vision. No trauma to the head and no neck pain. The pain is severe, constant, and it is slowly increasing in severity. The patient rates the pain as severe and 10/10. The patient has taken over-the- counter Tylenol without relief. This is not the worst headache of the life and is similar to previous migraines. Previous imaging studies of the brain have been normal. REVIEW OF SYSTEMS: A review of systems was performed with positives and pertinent negatives listed in the history of present illness. All other systems were reviewed and are negative. ALLERGIES: As noted below MEDICATIONS: As noted below PMH: Chronic migraines SOCIAL HISTORY: Lives locally with family PHYSICAL EXAM: Vital Signs: Reviewed Nurse's notes, vital signs stable. GENERAL : 41-year-old female, who appears in pain, but non toxic in appearance and in no acute distress. MENTAL STATUS: Alert, oriented, and coherent. HEENT: Normocephalic. PERRLA. EOMI. Nares patent without nuchal rigidity. Tympanic membranes pearly perkins without erythema or effusion bilaterally. Mucous membranes moist. NECK: Supple, no nuchal rigidity, nontender, no lymphadenopathy. HEART: Regular rhythm and normal rate without murmurs, ectopy, gallops, or rubs. LUNGS: Clear to auscultation bilaterally without wheezes, rales or rhonchi. No dullness to percussion. No accessory muscle use. No retractions. SKIN: Normal. NEUROLOGICAL: Pupils are round, equal and react to light. The optic fundi are normal and the discs are flat. The patient moves all extremities well and the gait is normal. EMERGENCY DEPARTMENT COURSE: I examined the patient. The patient is on a 2 narcotic injection per month treatment plan for their migraines. The patient was given 1 mg of Dilaudid IM, 25 mg of Phenergan IM per their usual protocol. The differential diagnosis includes acute intracranial bleed, meningitis, encephalitis, mass or mass effect, sinusitis, infection, tumor, headache, temporal arteritis and carbon monoxide exposure, and migraine. The patient was discharged home in stable condition with male driving. In the evaluation and treatment of this patient, the following differential diagnoses were considered: Concussion, Contrecoup Injury, Brain Tumor, Depression, Encephalitis, Hypothyroidism, Meningitis, CVA, TIA, Migraine, Cluster Headache, Intracranial Abnormality, Intracranial Hemorrhage, Subdural Hematoma, Subarachnoid Hemorrhage, Hydrocephalus. Problem List Medical Problems: (1) Asthma Status: Chronic (2) Bronchitis Status: Resolved (3) Chronic obstructive lung disease Status: Chronic (4) emphysema Status: Chronic (5) Gastroparesis Status: Chronic (6) H/O endoscopy Status: Resolved (7) Irritable Bowel Syndrome Status: Chronic (8) Migraine Status: Chronic (9) Removal of ovarian cyst Status: Resolved Current/Historical Medications Scheduled Bromocriptine Mesylate (Bromocriptine Mesylate), 2.5 MG PO BID Bupropion (Wellbutrin Sr), 150 MG PO DAILY Magnesium Oxide (Mag-Ox), 400 MG PO DAILY Mirtazapine (Remeron), 15 MG PO HS Multivitamin (Multivitamin), 1 TAB PO DAILY Pantoprazole (Protonix), 40 MG PO BID Polyethylene Glycol 3350 (Miralax), 34 GM PO DAILY Riboflavin (Riboflavin), 400 MG PO DAILY Scheduled PRN Albuterol Sulfate (Proair Respiclick), 2 PUFFS INH Q4H PRN for SOB/Wheezing Alum & Mag Hydrox-Simethicone (Maalox Advanced Maximum S), 1 DOSE PO DIRECTED PRN for Indigestion Calcium Carbonate (Tums), 500 MG PO DIRECTED PRN for Indigestion Ipratropium [place] (Ipratropium [place]), 1 VIAL NEB Q4H PRN for Shortness of Breath Ipratropium-Albuterol (Duoneb), 1 TREATMENT INH QID PRN for SOB/Wheezing Ondansetron Odt (Zofran Odt), 8 MG SL TID PRN for Nausea Allergies Coded Allergies: Metronidazole (Verified Allergy, Intermediate, RASH, 02/03/17) Penicillins (Verified Allergy, Intermediate, RASH, 02/03/17) Sulfa Drugs (Verified Allergy, Unknown, HIVES, 02/03/17) Garlic (Verified Adverse Reaction, Mild, GI SYMPTOMS, 02/03/17) Pt states that she avoids garlic in foods because it causes nausea Vital Signs Date Time Temp Pulse Resp B/P Pulse Ox O2 Delivery O2 Flow Rate FiO2 02/03/17 18:58 75 18 132/88 99 Room Air 02/03/17 17:49 37.0 105 16 116/80 98 Room Air Medications Administered Medications (Trade) Dose Ordered Sig/Susan Route Start Time Stop Time Status Last Admin Dose Admin Hydromorphone HCl (Dilaudid Inj) 1 mg NOW STAT IM 02/03/17 18:27 02/03/17 18:29 DC 02/03/17 18:57 1 MG Promethazine HCl (Phenergan Inj) 25 mg NOW STAT IM 02/03/17 18:27 02/03/17 18:29 DC 02/03/17 18:57 25 MG Departure Information Impression Primary Impression: Headache Dispostion Home / Self-Care Condition GOOD Referrals No Doctor, Assigned (PCP) Patient Instructions My [facility] Additional Instructions You have been treated in the Emergency Department for a Headache. You have received pain medicine in the emergency department which impairs your ability to operate a vehicle. It is illegal for you to drive after receiving these medicines. For pain control, you can use the following [id number] medicines (if >12 yo): - Regular strength (325mg/tab) Tylenol (acetaminophen) 2 tabs every 4-6 hours as needed. Do not exceed 12 tablets in a 24 hour period. Avoid taking more than 4 grams (4000 mg) of Tylenol per day. This includes any other sources of acetaminophen you may take on a regular basis. - Regular strength (200 mg/tab) Advil (ibuprofen) 1-2 tabs every 4-6 hours as needed. Do not exceed a dose of 3200 mg per day. You should relax in a quiet, dark place for the rest of the day. Avoid any possible triggers including: cigarette smoke, caffeine, nicotine, chocolate, wine, beer, loud noises or music, or bright lights. You should schedule a follow-up appointment in 2-3 days with your Primary Care Provider or established Neurologist for further evaluation and treatment of your Headache. Return to the Emergency Department if your current symptoms worsen despite treatment course outlined above, or if you develop any of the following symptoms : intractable pain despite aforementioned treatment course, visual disturbances , loss of vision, unilateral weakness or facial drooping, slurring of speech, loss of coordination, or loss of consciousness. Please return to the emergency department with any new/concerning symptoms.
[2017-02-03 18:58] VITALS: BP 132/88; PULSE 75; O2SAT 99
[2017-02-03] MEDS ORDERED: ATRINS NEB (18:59)
[2017-05-05] MEDS ORDERED: MIRT15TA3 PO (13:59)
[2017-05-05] MEDS ORDERED: PANT40TA2 PO (16:52)
[2017-05-05] MEDS ORDERED: MULT-506 PO (18:59)
[2017-05-05] MEDS ORDERED: IPRASOL4 INH (18:59)
[2017-05-05] MEDS ORDERED: MAGN400T6 PO (18:59)
[2017-05-05] MEDS ORDERED: CALC500C3 PO (18:59)
[2017-05-05] MEDS ORDERED: ALUM-80 PO (18:59)
[2017-05-05] MEDS ORDERED: RIBO1TAB4 PO (18:59)
[2017-05-05] MEDS ORDERED: ALBU18002 INH (18:59)
[2017-05-05] MEDS ORDERED: POLY335019 PO (18:59)
[2017-05-05] MEDS ORDERED: PRLD25 PO (21:32)
== END 2017-02-03 19:03 | disposition home or self-care (01) ==
LOC: C.EDB 17:34 → C.EDD 19:03
DX: R51 Headache (principal); J45.909 Unspecified asthma, uncomplicated; J44.9 Chronic obstructive pulmonary disease, unspecified; K58.9 Irritable bowel syndrome, unspecified

== ENCOUNTER 2017-02-27 19:34 | Emergency (ER) | payer OTHER ==
[~2017-02-27] VITALS: Ht 170.2 cm; Wt 49.9 kg
[~2017-02-27 19:34] MED LIST changes: +ATRINS NEB; -BUDE0.5S NEB; -FLUT1INH INH; -IPRASOL4 NEB; -PARO10TA PO; -POTA10CA28 PO; -RANI300T2 PO; -SPRIN/30 INH; -TOPI25TA10 PO
[2017-02-27 19:37] VITALS: BP 117/85; PULSE 111; TEMP 36.9; O2SAT 99; Ht 170.2 cm; Wt 49.9 kg
[2017-02-27] MEDS ORDERED: PROMETHAZINE HCL INJ 25 MG/ML 1 ML VIAL IM STA (19:49)
[2017-02-27] MEDS ORDERED: HYDROmorphone INJ 1 MG/ML SYR IM STA (19:49)
--- NOTE | 2017-02-27 19:53 | EMERGENCY ROOM VISIT NOTE ---
ED Visit Note First contact with patient: 19:38 CHIEF COMPLAINT: Migraine headache HISTORY OF PRESENT ILLNESS: This 41-year-old female patient presented to the emergency department with a gradual onset of a severe generalized headache that started today. There has been associated photophobia, phonophobia, nausea and vomiting. The patient denies fever or chills recently, and there is no weakness or numbness of the extremities. There is no difficulty with speech or vision. No trauma to the head and no neck pain. The pain is severe, constant, and it is slowly increasing in severity. The patient rates the pain as severe and 9/10. The patient has taken her usual medications. This is not the worst headache of the life and is similar to previous migraines. Previous imaging studies of the brain (CT scans) have been normal. REVIEW OF SYSTEMS: An 8 system review of systems was completed with positives and pertinent negatives listed in the HPI. ALLERGIES: Garlic, metronidazole, penicillin, sulfa MEDICATIONS: Unchanged from previous PMH: Migraines SOCIAL HISTORY: The patient is a smoker. She lives locally PHYSICAL EXAM: Vital Signs: Reviewed Nurse's notes, vital signs stable. MENTAL STATUS: Alert, oriented, and coherent. In great distress from the headache. NECK : Supple, no nuchal rigidity, nontender, no lymphadenopathy. HEART: Regular rhythm and normal rate without murmurs, ectopy, gallops, or rubs. SKIN: Normal. NEUROLOGICAL: Pupils are round, equal and react to light. The optic fundi are normal and the discs are flat. EOMs are full and there is no nystagmus. The patient moves all extremities well and the gait is normal. EMERGENCY DEPARTMENT COURSE: I examined the patient. The patient is well-known to this emergency department. 2 shot per month treatment protocol. The patient states that this is very typical of her migraines. She follows with her neurologist regularly and is being referred to start Botox injections. The patient was given 1 mg IM Dilaudid and 25 mg IM Phenergan with relief of their pain. The differential diagnosis includes acute intracranial bleed, meningitis , encephalitis, mass or mass effect, sinusitis, infection, tumor, headache, temporal arteritis and carbon monoxide exposure, and migraine. The patient was discharged home in stable condition with a [id number]/m60 tank driver. DIAGNOSIS: Migraine headache DISCHARGE INSTRUCTIONS & TREATMENT: Rest at home, resume prescription medications. See your own doctor in follow-up. Problem List Medical Problems: (1) Asthma Status: Chronic (2) Bronchitis Status: Resolved (3) Chronic obstructive lung disease Status: Chronic (4) emphysema Status: Chronic (5) Gastroparesis Status: Chronic (6) H/O endoscopy Status: Resolved (7) Irritable Bowel Syndrome Status: Chronic (8) Migraine Status: Chronic (9) Removal of ovarian cyst Status: Resolved Current/Historical Medications Scheduled Bromocriptine Mesylate (Bromocriptine Mesylate), 2.5 MG PO BID Bupropion (Wellbutrin Sr), 150 MG PO DAILY Magnesium Oxide (Mag-Ox), 400 MG PO DAILY Mirtazapine (Remeron), 15 MG PO HS Multivitamin (Multivitamin), 1 TAB PO DAILY Pantoprazole (Protonix), 40 MG PO BID Polyethylene Glycol 3350 (Miralax), 34 GM PO DAILY Riboflavin (Riboflavin), 400 MG PO DAILY Scheduled PRN Albuterol Sulfate (Proair Respiclick), 2 PUFFS INH Q4H PRN for SOB/Wheezing Alum & Mag Hydrox-Simethicone (Maalox Advanced Maximum S), 1 DOSE PO DIRECTED PRN for Indigestion Calcium Carbonate (Tums), 500 MG PO DIRECTED PRN for Indigestion Ipratropium [place] (Ipratropium [place]), 1 VIAL NEB Q4H PRN for Shortness of Breath Ipratropium-Albuterol (Duoneb), 1 TREATMENT INH QID PRN for SOB/Wheezing Ondansetron Odt (Zofran Odt), 8 MG SL TID PRN for Nausea Allergies Coded Allergies: Metronidazole (Verified Allergy, Intermediate, RASH, 02/03/17) Penicillins (Verified Allergy, Intermediate, RASH, 02/03/17) Sulfa Drugs (Verified Allergy, Unknown, HIVES, 02/03/17) Garlic (Verified Adverse Reaction, Mild, GI SYMPTOMS, 02/03/17) Pt states that she avoids garlic in foods because it causes nausea Vital Signs Date Time Temp Pulse Resp B/P Pulse Ox O2 Delivery O2 Flow Rate FiO2 02/27/17 19:37 36.9 111 16 117/85 99 Room Air Medications Administered Medications (Trade) Dose Ordered Sig/Susan Route Start Time Stop Time Status Last Admin Dose Admin Hydromorphone HCl (Dilaudid Inj) 1 mg NOW STAT IM 02/27/17 19:49 02/27/17 19:51 DC 02/27/17 20:02 1 MG Promethazine HCl (Phenergan Inj) 25 mg NOW STAT IM 02/27/17 19:49 02/27/17 19:51 DC 02/27/17 20:02 25 MG Departure Information Impression Primary Impression: Migraine Dispostion Home / Self-Care Condition GOOD Referrals Fan Garcia M.D. (PCP) Patient Instructions ED Headache Migraine, [facility] Additional Instructions Rest at home, resume prescription medications. See your own doctor in follow-up.
[2017-05-05] MEDS ORDERED: MIRT15TA3 PO (13:59)
[2017-05-05] MEDS ORDERED: PANT40TA2 PO (16:52)
[2017-05-05] MEDS ORDERED: RIBO1TAB4 PO (18:59)
[2017-05-05] MEDS ORDERED: POLY335019 PO (18:59)
[2017-05-05] MEDS ORDERED: CALC500C3 PO (18:59)
[2017-05-05] MEDS ORDERED: ALUM-80 PO (18:59)
[2017-05-05] MEDS ORDERED: ALBU18002 INH (18:59)
[2017-05-05] MEDS ORDERED: MULT-506 PO (18:59)
[2017-05-05] MEDS ORDERED: MAGN400T6 PO (18:59)
[2017-05-05] MEDS ORDERED: IPRASOL4 INH (18:59)
[2017-05-05] MEDS ORDERED: PRLD25 PO (21:32)
== END 2017-02-27 20:15 | disposition home or self-care (01) ==
LOC: C.EDB 19:35 → C.EDD 20:15
DX: G43.909 Migraine, unspecified, not intractable, without status migrainosus (principal); J45.909 Unspecified asthma, uncomplicated; J44.9 Chronic obstructive pulmonary disease, unspecified; J43.9 Emphysema, unspecified; K31.84 Gastroparesis; K58.9 Irritable bowel syndrome, unspecified; Z79.899 Other long term (current) drug therapy

== ENCOUNTER 2017-03-04 16:32 | Emergency (ER) | payer OTHER ==
[~2017-03-04] VITALS: Ht 170.2 cm; Wt 49.5 kg
[2017-03-04 16:37] VITALS: TEMP 36.8; Ht 170.2 cm; Wt 49.5 kg
[2017-03-04] MEDS ORDERED: PROMETHAZINE HCL INJ 25 MG/ML 1 ML VIAL IM STA (16:49)
[2017-03-04] MEDS ORDERED: HYDROmorphone INJ 1 MG/ML SYR IM STA (16:49)
[2017-03-04] MEDS ORDERED: CLC/300 PO (16:52)
--- NOTE | 2017-03-04 16:55 | EMERGENCY ROOM VISIT NOTE ---
History First contact with patient: 16:39 Chief Complaint: NAUSEA Stated Complaint: MIGRAINES,NAUSEA,VOMITING History of Present Illness The patient is a 41 year old female who presents to the Emergency Room with complaints of migraine headache which started 2 days ago. The patient is well- known to the emergency room for her migraine headaches. The patient states that the pain is all over her head and denies any visual changes except for photosensitivity. The patient denies any dizziness. The patient does admit to nausea and one episode of vomiting. The patient states this is typical for her migraine headaches. This is not the worse headache of her life. She took extra strength Tylenol without any relief of her headache. Review of Systems 10 system review was performed and was negative unless stated otherwise history of present illness. Past Medical/Surgical History Medical Problems: (1) Asthma (2) Bronchitis (3) Chronic obstructive lung disease (4) emphysema (5) Gastroparesis (6) H/O endoscopy (7) Irritable Bowel Syndrome (8) Migraine (9) Removal of ovarian cyst Family History Diabetes mellitus FH: cancer FH: gallbladder disease FHx: heart disease Hypertension Kidney disease Kidney stones Social History Smoking Status: Current Every Day Smoker Alcohol Use: none Drug Use: none Marital Status: in relationship Housing Status: lives with family Occupation Status: unemployed Current/Historical Medications Scheduled Bromocriptine Mesylate (Bromocriptine Mesylate), 2.5 MG PO BID Bupropion (Wellbutrin Sr), 150 MG PO DAILY Clindamycin HCl (Clindamycin HCl), 300 MG PO BID Magnesium Oxide (Mag-Ox), 400 MG PO DAILY Mirtazapine (Remeron), 15 MG PO HS Multivitamin (Multivitamin), 1 TAB PO DAILY Pantoprazole (Pantoprazole Sodium), 40 MG PO BID Polyethylene Glycol 3350 (Miralax), 34 GM PO DAILY Riboflavin (Riboflavin), 400 MG PO DAILY Scheduled PRN Albuterol Sulfate (Proair Respiclick), 2 PUFFS INH Q4H PRN for SOB/Wheezing Alum & Mag Hydrox-Simethicone (Maalox Advanced Maximum S), 1 DOSE PO UD PRN for Indigestion Calcium Carbonate (Tums), 500 MG PO UD PRN for Indigestion Ipratropium-Albuterol (Duoneb), 1 TREATMENT INH QID PRN for SOB/Wheezing Ondansetron Odt (Zofran Odt), 8 MG SL TID PRN for Nausea Allergies Coded Allergies: Metronidazole (Verified Allergy, Intermediate, RASH, 02/03/17) Penicillins (Verified Allergy, Intermediate, RASH, 02/03/17) Sulfa Drugs (Verified Allergy, Unknown, HIVES, 02/03/17) Garlic (Verified Adverse Reaction, Mild, GI SYMPTOMS, 02/03/17) Pt states that she avoids garlic in foods because it causes nausea Physical Exam Vital Signs Date Time Temp Pulse Resp B/P Pulse Ox O2 Delivery O2 Flow Rate FiO2 03/04/17 16:37 36.8 82 20 121/88 100 Room Air Physical Exam GENERAL: 41-year-old white female appears lying in a darkened room in no acute distress. MENTAL STATUS: Patient is alert and oriented x3 EYES: PERRLA. EOMs intact. EARS: Canals clear. TMs without fluid level noted. NECK: Supple, no lymphadenopathy noted. No carotid bruits noted. LUNGS: Expiratory wheezes noted bilaterally along ash. No rales or rhonchi noted. CARDIAC: Regular rate and rhythm without murmur. Pulses is full and equal throughout. ABDOMEN: Positive bowel sounds all 4 quadrants. Soft, nontender to palpation without organomegaly or masses. NEURO:Cranial nerves two through 12 intact. Cerebellar function intact with [id number]. Fine motor intact with alternating finger motions. Medical Decision & Procedures ED Course The patient was evaluated. The patient was given Dilaudid 1 mg IM and Phenergan 25 mg IM. This is her normal regimen for her migraines. This is her first injection for the month of March. The patient was reevaluated was feeling better. The patient was discharged home with a family member driving. Medical Decision Differential includes: Acute intracranial bleed, trauma, meningitis, encephalitis, increased intracranial pressure, mass or mass effect, facial or dental infection, temporal arteritis, CVA, TIA, acute hypertensive emergency, sinusitis, carbon monoxide exposure. The patient presented with her typical migraine headache symptoms therefore no additional diagnostic imaging was performed. Impression Primary Impression: Migraine Departure Information Dispostion Home / Self-Care Condition GOOD Referrals Fan Garcia M.D. (PCP) Forms HOME CARE DOCUMENTATION FORM, IMPORTANT VISIT INFORMATION Patient Instructions ED Headache Migraine, My [facility] Additional Instructions Go home and rest in a dark room. Do not drive for the remainder of the day. Continue all current medications as prescribed. Follow-up with your PCP if symptoms persist. Problem Qualifiers Primary Impression: Migraine Migraine type: unspecified Intractability: intractable
[2017-03-04 17:10] VITALS: BP 120/80; PULSE 75; O2SAT 95
[2017-03-04] MEDS ORDERED: ONDA8TAB62 SL (18:59)
[2017-03-04] MEDS ORDERED: BUPR-79 PO (18:59)
[2017-05-05] MEDS ORDERED: MIRT15TA3 PO (13:59)
[2017-05-05] MEDS ORDERED: PANT40TA2 PO (16:52)
[2017-05-05] MEDS ORDERED: ALUM-80 PO (18:59)
[2017-05-05] MEDS ORDERED: CALC500C3 PO (18:59)
[2017-05-05] MEDS ORDERED: MAGN400T6 PO (18:59)
[2017-05-05] MEDS ORDERED: RIBO1TAB4 PO (18:59)
[2017-05-05] MEDS ORDERED: MULT-506 PO (18:59)
[2017-05-05] MEDS ORDERED: POLY335019 PO (18:59)
[2017-05-05] MEDS ORDERED: IPRASOL4 INH (18:59)
[2017-05-05] MEDS ORDERED: ALBU18002 INH (18:59)
[2017-05-05] MEDS ORDERED: PRLD25 PO (21:32)
== END 2017-03-04 17:12 | disposition home or self-care (01) ==
LOC: C.EDB 16:33 → C.EDD 17:12
DX: G43.919 Migraine, unspecified, intractable, without status migrainosus (principal); J45.909 Unspecified asthma, uncomplicated; J44.9 Chronic obstructive pulmonary disease, unspecified; J43.9 Emphysema, unspecified; K31.84 Gastroparesis; K58.9 Irritable bowel syndrome, unspecified; Z83.3 Family history of diabetes mellitus; Z80.9 Family history of malignant neoplasm, unspecified; Z82.49 Family history of ischemic heart disease and other diseases of the circulatory system; Z84.1 Family history of disorders of kidney and ureter; F17.210 Nicotine dependence, cigarettes, uncomplicated; Z79.899 Other long term (current) drug therapy

== ENCOUNTER 2017-03-24 21:15 | Emergency (ER) | payer OTHER ==
[~2017-03-24] VITALS: Ht 171.5 cm; Wt 50.2 kg
[~2017-03-24 21:15] MED LIST changes: -ATRINS NEB; +BUPR-79 PO; +CLC/300 PO; +ONDA8TAB62 SL; -PANT1TAB48 PO
[2017-03-24 21:18] VITALS: BP 128/81; TEMP 36.8; Ht 171.5 cm; Wt 50.2 kg
[2017-03-24] MEDS ORDERED: PROMETHAZINE HCL INJ 25 MG/ML 1 ML VIAL IM STA (21:47)
[2017-03-24] MEDS ORDERED: HYDROmorphone INJ 2 MG/ML SYR/VIAL IM ONE (22:00)
[2017-03-24 22:24] VITALS: PULSE 85; O2SAT 98
--- NOTE | 2017-03-27 00:32 | EMERGENCY ROOM VISIT NOTE ---
ED Visit Note First contact with patient: 21:22 CHIEF COMPLAINT: Migraine headache. HISTORY OF PRESENT ILLNESS: Ms. Castillo is a 41 year-old white female who ambulates into the ED accompanied by her complaining of a migraine headache. She reports a gradual onset of a severe migraine headache that started approximately 3 days ago. Her discomfort was initially mild but has gradually increased in intensity. Similar to her previous migraine headaches and not the worst headache of the life. Currently she describes the headache as a throbbing sensation/pain in the bifrontal area. She rates the pain a 10/10. The pain is nonradiating. She has not identified any aggravating or alleviating factors related to the pain. She reports she was recently started on Topamax for her migraine headaches by a new primary care provider but has had no relief and feel the symptoms are getting worse. There is been associated light sensitivity, nausea and has had vomiting. She denies chills, sweats, sore throat, sinus drainage/congestion, shortness of breath, wheezing, difficulty breathing, chest pain/discomfort, weakness/ numbness of the extremities, genital paresthesias, bowel and bladder dysfunction , hematuria, difficulty with speech, hearing or vision, trauma to the head. REVIEW OF SYSTEMS: As noted above in History of Present Illness. All body systems were reviewed with this patient and found to be negative unless noted above otherwise. PAST MEDICAL HISTORY: Asthma, COPD, bronchitis, gastroparesis, irritable bowel syndrome. CURRENT MEDICATIONS: Medications Dose Route/Sig Max Daily Dose Days Date Category Dose Instructions Clindamycin HCl 300 Mg Cap 300 Mg PO BID 03/04/17 Reported PRESCRIBED 03/04/2017, TAKE DIRECTED UNTIL GONE Pantoprazole Sodium (Pantoprazole) 40 Mg Tab 40 Mg PO BID 03/04/17 Reported Multivitamin (Multivitamins) Tab 1 Tab PO DAILY 02/03/17 Reported Tums (Calcium Carbonate) 500 Mg Chew 500 Mg PO UD PRN 02/03/17 Reported TAKE PER PACKAGE DIRECTIONS Maalox Advanced Maximum S (Alum & Mag Hydrox-Simethicone) 1 Usha Usha 1 Dose PO UD PRN 02/03/17 Reported Miralax (Polyethylene Glycol 3350) 1 Pow Pow 34 Gm PO DAILY 02/03/17 Reported Proair Respiclick (Albuterol Sulfate) 108 Mcg/Act Aer 2 Puffs INH Q4H PRN 02/03/17 Reported Riboflavin 400 Mg Tab 400 Mg PO DAILY 02/03/17 Reported Mag-Ox (Magnesium Oxide) 400 Mg Tab 400 Mg PO DAILY 02/03/17 Reported Zofran Odt (Ondansetron HCl) 8 Mg Soltab 8 Mg SL TID PRN 02/03/17 Reported Wellbutrin Sr (Bupropion HCl) 150 Mg Ertab 150 Mg PO DAILY 02/03/17 Reported Duoneb (Ipratropium-Albuterol) 3 Ml Nebu 1 Treatment INH QID PRN 02/03/17 Reported MAXIMUM OF 6 DOSES IN 24 HOURS Remeron (Mirtazapine) 15 Mg Tab 15 Mg PO HS 12/01/16 Reported Bromocriptine Mesylate 2.5 Mg Tab 2.5 Mg PO BID 08/11/15 Reported ALLERGIES TO MEDICATIONS: Sulfa, penicillin, metronidazole. SOCIAL HISTORY: Patient is not currently employed; she lives with her and feels safe in her home environment; she admits to tobacco use and denies alcohol use. PHYSICAL EXAM: Vital Signs: Date Time Temp Pulse Resp B/P Pulse Ox O2 Delivery O2 Flow Rate FiO2 03/24/17 22:24 85 20 98 03/24/17 21:18 36.8 78 18 128/81 100 Room Air GENERAL: 41 year-old white female in moderate distress due to pain, afebrile and hemodynamically stable found lying in a darkened room accompanied by her . NEUROLOGIC: Awake, alert and oriented to person place and time. Answering questions appropriately and following commands. Cranial nerves II-XII grossly intact. No focal neurologic deficits noted. Normal gait. SKIN: Warm, dry and pink. No rashes, lesions or soft tissue trauma noted. HEENT: Normocephalic, atraumatic. No erythema or tenderness over the frontal maxillary sinuses. External and ears are nontender and auditory canals are pink and patent. Tympanic membrane is pearly perkins with normal light reflex. PERRLA. EOMI without nystagmus. Funduscopic examination deferred due to patient's light sensitivity. Sclerae white and conjunctiva pink without drainage. Uvula is midline and no abscesses are seen. No posterior pharyngeal erythema or edema. Normal speech. Airway patent. No JVD. Trachea midline. NECK: No tenderness over the cervical bony spine. Full range of motion of the cervical spine. No nuchal rigidity. THORAX: Lungs clear to auscultation and equal bilaterally with no wheezing, crackles, rhonchi or stridor and equal chest wall movements. HEART: Regular rate and rhythm with no murmurs, rubs or gallops. ABDOMEN: Flat and soft with mild diffuse tenderness; similar to prior examinations. Positive bowel sounds present in all quadrants; no rigidity, rebound tenderness, organomegaly or guarding. BACK: No tenderness over the bony thoracic or lumbar spine. No CVA tenderness. MUSCULOSKELETAL: Full range of motion of all joints without any significant discomfort and the gait is normal. ED COURSE: Patient is assessed with history and physical examination. Patient is currently on her treatment plan of 2 shots per month and this is her second visit. She received 2 mg of Dilaudid IM and 25 mg of Phenergan IM for pain and nausea. Patient was reassessed. Patient was educated about her condition and instructed on her treatment plan; she verbalized understanding and agreement with this plan. CLINICAL IMPRESSION: Acute migraine headache. 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 She is afebrile, well appearing, and hemodynamically stable. She has no signs of a dental, or ear infection and no evidence of meningismus. She is neurologically intact. I do not suspect a headache to be secondary to a subarachnoid hemorrhage, meningitis, encephalitis, or intracranial mass lesion. DISPOSITION: Patient was discharged to home in stable condition accompanied by her ; prior to discharge she was reassessed and reported that she was feeling better and rated her discomfort 3/10. DISCHARGE INSTRUCTIONS: Rest at home, in a quiet darkened room and allow the medication to work for the pain. Continue to follow up current treatment plan prescribed by your physician for your migraine headaches. See your own doctor in follow-up this week for continued care and treatment for her migraine headaches. Return to the ED as needed for worsening/uncontrolled pain, fever, uncontrolled vomiting, any abnormal neurological symptoms or any other concerning symptoms.
[2017-05-05] MEDS ORDERED: MIRT15TA3 PO (13:59)
[2017-05-05] MEDS ORDERED: PANT40TA2 PO (16:52)
[2017-05-05] MEDS ORDERED: MULT-506 PO (18:59)
[2017-05-05] MEDS ORDERED: POLY335019 PO (18:59)
[2017-05-05] MEDS ORDERED: CALC500C3 PO (18:59)
[2017-05-05] MEDS ORDERED: IPRASOL4 INH (18:59)
[2017-05-05] MEDS ORDERED: ALUM-80 PO (18:59)
[2017-05-05] MEDS ORDERED: ALBU18002 INH (18:59)
[2017-05-05] MEDS ORDERED: MAGN400T6 PO (18:59)
[2017-05-05] MEDS ORDERED: RIBO1TAB4 PO (18:59)
[2017-05-05] MEDS ORDERED: PRLD25 PO (21:32)
== END 2017-03-24 22:26 | disposition home or self-care (01) ==
LOC: C.EDB 21:16 → C.EDD 22:26
DX: G43.909 Migraine, unspecified, not intractable, without status migrainosus (principal); J45.909 Unspecified asthma, uncomplicated; J44.9 Chronic obstructive pulmonary disease, unspecified; K58.9 Irritable bowel syndrome, unspecified; K31.84 Gastroparesis; Z79.899 Other long term (current) drug therapy

== ENCOUNTER 2017-04-22 15:19 | Emergency (ER) | payer OTHER ==
[~2017-04-22] VITALS: Ht 171.5 cm; Wt 49.8 kg
[2017-04-22 15:23] VITALS: TEMP 36.8; Ht 171.5 cm; Wt 49.8 kg
[2017-04-22] MEDS ORDERED: PROMETHAZINE HCL INJ 25 MG/ML 1 ML VIAL IM STA (15:39)
[2017-04-22] MEDS ORDERED: HYDROmorphone INJ 1 MG/ML SYR IM STA (15:39)
--- NOTE | 2017-04-22 15:39 | EMERGENCY ROOM VISIT NOTE ---
ED Visit Note First contact with patient: 15:27 CHIEF COMPLAINT: Migraine headache HISTORY OF PRESENT ILLNESS: This 41-year-old female patient presented to the emergency department with a gradual onset of a severe generalized headache that started 1 week ago. There has been associated photophobia, phonophobia, nausea and vomiting. The patient denies fever or chills recently, and there is no weakness or numbness of the extremities. There is no difficulty with speech or vision. No trauma to the head and no neck pain. The pain is severe, constant, and it is slowly increasing in severity. The patient rates the pain as severe and 9/10. The patient has taken her usual medications. This is not the worst headache of the life and is similar to previous migraines. Previous imaging studies of the brain (CT scans) have been normal. REVIEW OF SYSTEMS: An 8 system review of systems was completed with positives and pertinent negatives listed in the HPI. ALLERGIES: Garlic, metronidazole, penicillin, sulfa MEDICATIONS: Unchanged from previous PMH: Migraines SOCIAL HISTORY: The patient is a smoker. She lives locally PHYSICAL EXAM: Vital Signs: Reviewed Nurse's notes, vital signs stable. MENTAL STATUS: Alert, oriented, and coherent. In great distress from the headache. NECK : Supple, no nuchal rigidity, nontender, no lymphadenopathy. HEART: Regular rhythm and normal rate without murmurs, ectopy, gallops, or rubs. SKIN: Normal. NEUROLOGICAL: Pupils are round, equal and react to light. The optic fundi are normal and the discs are flat. EOMs are full and there is no nystagmus. The patient moves all extremities well and the gait is normal. EMERGENCY DEPARTMENT COURSE: I examined the patient. The patient is well-known to this emergency department. 2 shot per month treatment protocol. The patient states that this is very typical of her migraines. She follows with her neurologist regularly and is being referred to start Botox injections. The patient was given 1 mg IM Dilaudid and 25 mg IM Phenergan with relief of their pain. The differential diagnosis includes acute intracranial bleed, meningitis , encephalitis, mass or mass effect, sinusitis, infection, tumor, headache, temporal arteritis and carbon monoxide exposure, and migraine. The patient was discharged home in stable condition with her driving. DIAGNOSIS: Migraine headache DISCHARGE INSTRUCTIONS & TREATMENT: Rest at home, resume prescription medications. See your own doctor in follow-up. Problem List Medical Problems: (1) Asthma Status: Chronic (2) Bronchitis Status: Resolved (3) Chronic obstructive lung disease Status: Chronic (4) emphysema Status: Chronic (5) Gastroparesis Status: Chronic (6) H/O endoscopy Status: Resolved (7) Irritable Bowel Syndrome Status: Chronic (8) Migraine Status: Chronic (9) Removal of ovarian cyst Status: Resolved Current/Historical Medications Scheduled Bromocriptine Mesylate (Bromocriptine Mesylate), 2.5 MG PO BID Bupropion (Wellbutrin Sr), 150 MG PO DAILY Magnesium Oxide (Mag-Ox), 400 MG PO DAILY Mirtazapine (Remeron), 15 MG PO HS Multivitamin (Multivitamin), 1 TAB PO DAILY Pantoprazole (Pantoprazole Sodium), 40 MG PO BID Polyethylene Glycol 3350 (Miralax), 34 GM PO DAILY Riboflavin (Riboflavin), 400 MG PO DAILY Scheduled PRN Albuterol Sulfate (Proair Respiclick), 2 PUFFS INH Q4H PRN for SOB/Wheezing Alum & Mag Hydrox-Simethicone (Maalox Advanced Maximum S), 1 DOSE PO UD PRN for Indigestion Calcium Carbonate (Tums), 500 MG PO UD PRN for Indigestion Ipratropium-Albuterol (Duoneb), 1 TREATMENT INH QID PRN for SOB/Wheezing Ondansetron Odt (Zofran Odt), 8 MG SL TID PRN for Nausea Allergies Coded Allergies: Metronidazole (Verified Allergy, Intermediate, RASH, 04/22/17) Penicillins (Verified Allergy, Intermediate, RASH, 04/22/17) Sulfa Drugs (Verified Allergy, Unknown, HIVES, 04/22/17) Garlic (Verified Adverse Reaction, Mild, GI SYMPTOMS, 04/22/17) Pt states that she avoids garlic in foods because it causes nausea Vital Signs Date Time Temp Pulse Resp B/P (MAP) Pulse Ox O2 Delivery O2 Flow Rate FiO2 04/22/17 16:25 77 15 118/52 98 Room Air 04/22/17 15:23 36.8 93 18 122/88 100 Room Air Medications Administered Medications (Trade) Dose Ordered Sig/Susan Route Start Time Stop Time Status Last Admin Dose Admin Hydromorphone HCl (Dilaudid Inj) 1 mg NOW STAT IM 04/22/17 15:39 04/22/17 15:40 DC 04/22/17 15:55 1 MG Promethazine HCl (Phenergan Inj) 25 mg NOW STAT IM 04/22/17 15:39 04/22/17 15:40 DC 04/22/17 15:54 25 MG Departure Information Impression Primary Impression: Migraine Dispostion Home / Self-Care Condition GOOD Referrals Fan Garcia M.D. (PCP) Patient Instructions My [facility] Additional Instructions Rest at home, resume prescription medications. See your own doctor in follow-up.
[2017-04-22 16:25] VITALS: BP 118/52; PULSE 77; O2SAT 98
[2017-05-05] MEDS ORDERED: MIRT15TA3 PO (13:59)
[2017-05-05] MEDS ORDERED: PANT40TA2 PO (16:52)
[2017-05-05] MEDS ORDERED: RIBO1TAB4 PO (18:59)
[2017-05-05] MEDS ORDERED: IPRASOL4 INH (18:59)
[2017-05-05] MEDS ORDERED: ALBU18002 INH (18:59)
[2017-05-05] MEDS ORDERED: MAGN400T6 PO (18:59)
[2017-05-05] MEDS ORDERED: ALUM-80 PO (18:59)
[2017-05-05] MEDS ORDERED: POLY335019 PO (18:59)
[2017-05-05] MEDS ORDERED: MULT-506 PO (18:59)
[2017-05-05] MEDS ORDERED: CALC500C3 PO (18:59)
[2017-05-05] MEDS ORDERED: PRLD25 PO (21:32)
== END 2017-04-22 16:26 | disposition home or self-care (01) ==
LOC: C.EDB 15:20 → C.EDD 16:26
DX: G43.909 Migraine, unspecified, not intractable, without status migrainosus (principal); J44.9 Chronic obstructive pulmonary disease, unspecified; K58.9 Irritable bowel syndrome, unspecified; F17.210 Nicotine dependence, cigarettes, uncomplicated; Z79.899 Other long term (current) drug therapy

== ENCOUNTER 2017-04-26 23:42 | Emergency (ER) | payer OTHER ==
[~2017-04-26] VITALS: Ht 171.5 cm; Wt 50.8 kg
[~2017-04-26 23:42] MED LIST changes: -CLC/300 PO
[2017-04-26 23:57] VITALS: BP 115/71; PULSE 94; TEMP 37.2; O2SAT 100; Ht 171.5 cm; Wt 50.8 kg
[2017-04-27] MEDS ORDERED: HYDROmorphone INJ 1 MG/ML SYR IM STA (00:10)
[2017-04-27] MEDS ORDERED: PROMETHAZINE HCL INJ 25 MG/ML 1 ML VIAL IM STA (00:10)
--- NOTE | 2017-04-27 00:33 | EMERGENCY ROOM VISIT NOTE ---
History First contact with patient: 00:01 Chief Complaint: HEADACHE Stated Complaint: MIGRAINE,NAUSEA,VOMITING History of Present Illness The patient is a 41 year old female who presents to the Emergency Room with complaints of gradual onset of a severe generalized headache that started a few days ago. There has been associated photophobia, phonophobia, nausea and vomiting. The patient denies fever or chills recently, and there is no weakness or numbness of the extremities. There is no difficulty with speech or vision. No trauma to the head and no neck pain. The pain is severe, constant, and it is slowly increasing in severity. The patient rates the pain as severe and 9/10. The patient has taken her usual medications. This is not the worst headache of the life and is similar to previous migraines. Previous imaging studies of the brain (CT scans) have been normal. Patient states this is typical migraine for her. No other concerns per patient. Review of Systems See HPI for pertinent positives & negatives. A total of 10 systems reviewed and were otherwise negative. Past Medical/Surgical History Medical Problems: (1) Asthma (2) Bronchitis (3) Chronic obstructive lung disease (4) emphysema (5) Gastroparesis (6) H/O endoscopy (7) Irritable Bowel Syndrome (8) Migraine (9) Removal of ovarian cyst Family History Diabetes mellitus FH: cancer FH: gallbladder disease FHx: heart disease Hypertension Kidney disease Kidney stones Social History Smoking Status: Current Every Day Smoker Alcohol Use: none Drug Use: none Marital Status: in relationship Housing Status: lives with family Occupation Status: unemployed Current/Historical Medications Scheduled Bromocriptine Mesylate (Bromocriptine Mesylate), 2.5 MG PO BID Bupropion (Wellbutrin Sr), 150 MG PO DAILY Magnesium Oxide (Mag-Ox), 400 MG PO DAILY Mirtazapine (Remeron), 15 MG PO HS Multivitamin (Multivitamin), 1 TAB PO DAILY Pantoprazole (Pantoprazole Sodium), 40 MG PO BID Polyethylene Glycol 3350 (Miralax), 34 GM PO DAILY Riboflavin (Riboflavin), 400 MG PO DAILY Scheduled PRN Albuterol Sulfate (Proair Respiclick), 2 PUFFS INH Q4H PRN for SOB/Wheezing Alum & Mag Hydrox-Simethicone (Maalox Advanced Maximum S), 1 DOSE PO UD PRN for Indigestion Calcium Carbonate (Tums), 500 MG PO UD PRN for Indigestion Ipratropium-Albuterol (Duoneb), 1 TREATMENT INH QID PRN for SOB/Wheezing Ondansetron Odt (Zofran Odt), 8 MG SL TID PRN for Nausea Allergies Coded Allergies: Metronidazole (Verified Allergy, Intermediate, RASH, 04/22/17) Penicillins (Verified Allergy, Intermediate, RASH, 04/22/17) Sulfa Drugs (Verified Allergy, Unknown, HIVES, 04/22/17) Garlic (Verified Adverse Reaction, Mild, GI SYMPTOMS, 04/22/17) Pt states that she avoids garlic in foods because it causes nausea Physical Exam Vital Signs Date Time Temp Pulse Resp B/P (MAP) Pulse Ox O2 Delivery O2 Flow Rate FiO2 04/26/17 23:57 37.2 94 18 115/71 100 Room Air Physical Exam VITALS: Vitals are noted on the nurse's note and reviewed by myself. Vital signs stable. GENERAL: Pleasant female, in no acute distress, nondiaphoretic, well-developed well-nourished. SKIN: The skin was without rashes, erythema, edema, or bruising. There is no tenting of the skin. Capillary reflex less than 2 seconds. HEAD: Normocephalic atraumatic. EARS: External auditory canals clear, tympanic membranes pearly perkins without erythema or effusion bilaterally. EYES: Pupils equal round and reactive to light and accommodation. Conjunctivae without injection, sclerae without icterus. Extraocular movements intact. NOSE: Patent, turbinates without inflammation or discharge. No sinus tenderness. MOUTH: Mucous membranes moist. Pharynx without erythema or exudate. Uvula midline. Airway patent. Tongue does not deviate. NECK: Supple without nuchal rigidity. No lymphadenopathy. No thyromegaly. Cervical spine is nontender. No JVD. No meningeal signs HEART: Regular rate and rhythm without murmurs gallops or rubs. LUNGS: Clear to auscultation bilaterally without wheezes, rales or rhonchi. No dullness to percussion. No retractions or accessory muscle use. ABDOMEN: Positive bowel sounds x 4. Normal tympanic percussion. Soft, nontender, without masses or organomegaly. Harrison sign negative. No guarding or rebound tenderness. MUSCULOSKELETAL: No muscle atrophy, erythema, or edema noted. NEURO: Patient was alert and oriented to person place and time. Normal sensation to light and sharp touch. No focal neurological deficits. Cranial nerves II through XII grossly intact. No pronator drift. Cerebellar exam intact. Medical Decision & Procedures Medications Administered Medications (Trade) Dose Ordered Sig/Susan Route Start Time Stop Time Status Last Admin Dose Admin Hydromorphone HCl (Dilaudid Inj) 1 mg NOW STAT IM 04/27/17 00:10 04/27/17 00:12 DC 04/27/17 00:18 1 MG Promethazine HCl (Phenergan Inj) 25 mg NOW STAT IM 04/27/17 00:10 04/27/17 00:12 DC 04/27/17 00:17 25 MG ED Course Prior records/ancillary studies reviewed. Additional history obtained from family. Triage Nursing notes reviewed. The patient's history was concerning for headache. Differential diagnosis: Etiologies such as migraine headache, meningitis, sinusitis, CO exposure, ICH, SAH, infection, tumor, headache, sinus thrombosis, arterial dissection, as well as others were entertained. Physical examination findings: As above. Non-focal. ER treatment provided: Dilaudid and Phenergan per her standard protocol On reassessment the patient felt better. Diagnostics interpreted by me: Deferred This appears to be consistent with migraine. Patient is well-known to this ER for frequent migraine visits. This is unchanged. She was neurovascularly and neurologically intact. She is well-appearing. No signs of meningitis. Headache was slow in onset. She is advised to follow-up with her neurologist in a few days or here in the ER sooner for headache, fevers, neck stiffness, worsening signs or symptoms or as needed. By the evaluation outlined above emergent etiologies such as meningitis, sinusitis, CO exposure, ICH, SAH, infection, temporal arteritis, tumor, sinus thrombosis, arterial dissection, as well as others were deemed relatively unlikely. The pt informed about the findings as listed above. All questions were answered and pleased with the treatment. Return instructions were outlined and the patient was discharged in stable condition. Referral: The patient was referred back to their primary care physician or neurologist for follow-up in 2 to 3 days for a recheck of the current condition. Medical Decision As above Impression Primary Impression: Migraine Departure Information Dispostion Home / Self-Care Condition GOOD Referrals Fan Garcia M.D. (PCP) Forms HOME CARE DOCUMENTATION FORM, IMPORTANT VISIT INFORMATION Patient Instructions Headaches Migraine and Tension, My [facility] Additional Instructions DO NOT drive, drink alcohol, operate machinery, or perform dangerous activities today. You were given medications in the ER that can affect your ability to safely function or operate a vehicle. Rest today in a quiet, peaceful, dark environment and get a full 8-10 hrs of sleep tonight. Avoid loud noises, smoke/smoking, alcohol, bright lights, stress, or physical exertion today to minimize the chance the headache may return. Continue current medications. Ibuprofen(Motrin, Advil) may be used for fever or pain. Use 600mg every six hours as needed. Take with food. Avoid using more than 2400mg in a 24 hour period. Do not use 2400mg per day for more than three consecutive days without physician direction. Prolonged inappropriate use can lead to stomach upset or ulcers. (AND/OR) Acetaminophen(Tylenol) may be used for fever or pain. Use 1000mg every six hours as needed. Avoid using more than 3000mg in a 24 hour period. Return to the ER for passing out, worsening headache, vision problems, neck stiffness/pain, fevers, vomiting, worsening of your condition, or as needed. Follow up with your primary physician and/or a neurologist in 2-3 days for a recheck of your current condition. Problem Qualifiers Primary Impression: Migraine Migraine type: without aura Status migrainosus presence: without status migrainosus Intractability: not intractable Qualified Codes: G43.009 - Migraine without aura, not intractable, without status migrainosus
[2017-05-05] MEDS ORDERED: MIRT15TA3 PO (13:59)
[2017-05-05] MEDS ORDERED: PANT40TA2 PO (16:52)
[2017-05-05] MEDS ORDERED: MAGN400T6 PO (18:59)
[2017-05-05] MEDS ORDERED: POLY335019 PO (18:59)
[2017-05-05] MEDS ORDERED: CALC500C3 PO (18:59)
[2017-05-05] MEDS ORDERED: RIBO1TAB4 PO (18:59)
[2017-05-05] MEDS ORDERED: IPRASOL4 INH (18:59)
[2017-05-05] MEDS ORDERED: ALBU18002 INH (18:59)
[2017-05-05] MEDS ORDERED: MULT-506 PO (18:59)
[2017-05-05] MEDS ORDERED: ALUM-80 PO (18:59)
[2017-05-05] MEDS ORDERED: PRLD25 PO (21:32)
== END 2017-04-27 00:36 | disposition home or self-care (01) ==
LOC: C.EDB 23:44 → C.EDA 04-27 00:36
DX: G43.909 Migraine, unspecified, not intractable, without status migrainosus (principal); J44.9 Chronic obstructive pulmonary disease, unspecified; J43.9 Emphysema, unspecified; J45.909 Unspecified asthma, uncomplicated; K58.9 Irritable bowel syndrome, unspecified; F17.200 Nicotine dependence, unspecified, uncomplicated; Z79.899 Other long term (current) drug therapy; Z88.0 Allergy status to penicillin; Z88.2 Allergy status to sulfonamides; Z88.8 Allergy status to other drugs, medicaments and biological substances; Z91.018 Allergy to other foods; Z83.3 Family history of diabetes mellitus; Z80.9 Family history of malignant neoplasm, unspecified; Z83.79 Family history of other diseases of the digestive system; Z82.49 Family history of ischemic heart disease and other diseases of the circulatory system; Z84.1 Family history of disorders of kidney and ureter

== ENCOUNTER 2017-05-05 21:45 | Emergency (ER) | payer OTHER ==
[~2017-05-05] VITALS: Ht 170.2 cm; Wt 51.8 kg
[~2017-05-05 21:45] MED LIST changes: +ALBU18002 INH; +ALUM-80 PO; +CALC500C3 PO; +IPRASOL4 INH; +MAGN400T6 PO; +MIRT15TA3 PO; +MULT-506 PO; +POLY335019 PO; +PRLD25 PO; +PRT/40 PO; +RIBO1TAB4 PO
[2017-05-05 21:55] VITALS: TEMP 36.7; Ht 170.2 cm; Wt 51.8 kg
[2017-05-05] MEDS ORDERED: PROMETHAZINE HCL INJ 25 MG/ML 1 ML VIAL IM STA (22:17)
[2017-05-05] MEDS ORDERED: HYDROmorphone INJ 1 MG/ML SYR IM STA (22:17)
[2017-05-05] MEDS ORDERED: ZFRODT/8 PO (22:30)
[2017-05-05] MEDS ORDERED: RANI150T2 PO (22:30)
[2017-05-05] MEDS ORDERED: WLLSR150 PO (22:30)
[2017-05-05] MEDS ORDERED: PROM25TA16 PO (22:30)
[2017-05-05] MEDS ORDERED: TRAZ50TA35 PO (22:30)
[2017-05-05 22:42] VITALS: BP 120/86; PULSE 80; O2SAT 99
--- NOTE | 2017-05-06 04:47 | EMERGENCY ROOM VISIT NOTE ---
History First contact with patient: 22:05 Chief Complaint: HEADACHE Stated Complaint: MIGRAINE History of Present Illness The patient is a 41 year old female who presents to the Emergency Room with complaints of migraine headache that began about 4 or 5 hours ago. The patient states that she took Tylenol without relief of symptoms. The patient is well- known to this facility for migraine headaches and is on a treatment plan of 2 shots per month. She does not report fever or chills. No photophobia or neck pain. She states this is identical to her previous migraines. The patient follows with Nasreen Slater of [facility] for her migraines, but does not have an appointment for a few months. Previous imaging studies have been normal. She rates her pain a 9/10. Review of Systems More than 10 systems were reviewed and otherwise negative with the exception of history of present illness. Past Medical/Surgical History Medical Problems: (1) Asthma (2) Bronchitis (3) Chronic obstructive lung disease (4) emphysema (5) Gastroparesis (6) H/O endoscopy (7) Irritable Bowel Syndrome (8) Migraine (9) Removal of ovarian cyst Family History Diabetes mellitus FH: cancer FH: gallbladder disease FHx: heart disease Hypertension Kidney disease Kidney stones Social History Smoking Status: Current Every Day Smoker Alcohol Use: none Drug Use: none Marital Status: in relationship Housing Status: lives with family Occupation Status: unemployed Current/Historical Medications Scheduled Bromocriptine Mesylate (Bromocriptine Mesylate), 2.5 MG PO BID Bupropion HCl (Bupropion HCl Sr), 150 MG PO DAILY Magnesium Oxide (Mag-Ox), 400 MG PO DAILY Mirtazapine (Remeron), 15 MG PO HS Multivitamin (Multivitamin), 1 TAB PO DAILY Pantoprazole (Pantoprazole Sodium), 40 MG PO BID Polyethylene Glycol 3350 (Miralax), 34 GM PO DAILY Ranitidine HCl (Ranitidine HCl), 150 MG PO DAILY Riboflavin (Riboflavin), 400 MG PO DAILY Trazodone Hcl (Trazodone), 25 MG PO HS Scheduled PRN Albuterol Sulfate (Proair Respiclick), 2 PUFFS INH Q4H PRN for SOB/Wheezing Alum & Mag Hydrox-Simethicone (Maalox Advanced Maximum S), 1 DOSE PO UD PRN for Indigestion Calcium Carbonate (Tums), 500 MG PO UD PRN for Indigestion Ipratropium-Albuterol (Duoneb), 1 TREATMENT INH QID PRN for SOB/Wheezing Ondansetron (Ondansetron Odt), 8 MG PO Q8 PRN for Nausea Promethazine HCl (Promethazine HCl), 25 MG PO UD PRN for Nausea Allergies Coded Allergies: Metronidazole (Verified Allergy, Intermediate, RASH, 04/22/17) Penicillins (Verified Allergy, Intermediate, RASH, 04/22/17) Sulfa Drugs (Verified Allergy, Unknown, HIVES, 04/22/17) Garlic (Verified Adverse Reaction, Mild, GI SYMPTOMS, 04/22/17) Pt states that she avoids garlic in foods because it causes nausea Physical Exam Vital Signs Date Time Temp Pulse Resp B/P (MAP) Pulse Ox O2 Delivery O2 Flow Rate FiO2 05/05/17 22:42 80 20 120/86 99 05/05/17 21:55 36.7 84 20 114/82 99 Room Air Pain Rating (0-10): 0 Physical Exam VITALS: Vitals are noted on the nurse's note and reviewed by myself. Vital signs stable. GENERAL: Well-developed, well-nourished, white female, who is in no acute distress and resting comfortably. Patient is cooperative with the examination. HEAD: Normocephalic atraumatic. NECK: Supple without nuchal rigidity. No lymphadenopathy. No thyromegaly. Cervical spine is nontender. No meningismus HEART: Regular rate and rhythm without murmurs gallops or rubs. LUNGS: Clear to auscultation bilaterally without wheezes, rales or rhonchi. No retractions or accessory muscle use. NEURO: Patient was alert and oriented to person place and time. CN II through XII grossly intact. Deep tendon reflexes 2+ throughout. No focal neurological deficits SKIN: The skin was without rashes, erythema, edema, or bruising. Capillary reflex less than 2 seconds. Medical Decision & Procedures Medications Administered Medications (Trade) Dose Ordered Sig/Susan Route Start Time Stop Time Status Last Admin Dose Admin Hydromorphone HCl (Dilaudid Inj) 1 mg NOW STAT IM 05/05/17 22:17 05/05/17 22:18 DC 05/05/17 22:37 1 MG Promethazine HCl (Phenergan Inj) 25 mg NOW STAT IM 05/05/17 22:17 05/05/17 22:18 DC 05/05/17 22:37 25 MG ED Course Physical exam and history were performed. Nursing notes and EMR were reviewed. Patient appears to have migraine symptoms for the past several hours without relief of symptoms with at-home Tylenol. The patient is well-known to the emergency department for frequency of visits for chronic migraines. The patient does not appear toxic on examination. Review of the patient's EMR shows that she recently had an address change and has moved out of the area a few months ago. The patient now [place] of [place], roughly 90 minutes away from this facility. Her primary care physician is also in this area. The patient indicates that she has moved to this region, and is only here today as she is visiting family for the May holiday. The patient is not able to adequately explain why she continues to come in twice a month despite not living nearby. I have considerable concern for the patient's visit as she is now traveling a significant distance to come to this facility for her regular narcotic treatments. The patient does not have any services in this area, but continues to come here for care. I do have concern due to the chronicity of the patient' s symptoms and willingness to travel to receive narcotics. I will treat the patient today with her normal 1 mg IM Dilaudid and 25 mg IM Phenergan. I will recommend that she be placed on a no narcotic treatment plan. I explained this to the patient, and referred her back to her neurologist and PCP for appropriate care. The patient was discharged home under the care of a male digital imaging technician who is driving today. The chart was completed utilizing [employer] Voice Recognition Software. Grammatical errors, random word insertions, pronoun errors, and incomplete sentences are an occasional consequence of this system due to software limitations, ambient noise, and hardware issues. Any formal questions or concerns about the content, text, or information contained within the body of this dictation should be directly addressed to the provider for clarification. . Medical Decision The differential diagnosis includes, but is not limited to: acute intracranial bleed, meningitis, encephalitis, mass or mass effect, sinusitis, infection, tumor, headache, temporal arteritis and carbon monoxide exposure, and migraine. Impression Primary Impression: Migraine Departure Information Dispostion Home / Self-Care Condition GOOD Referrals Fan Garcia M.D. (PCP) Forms HOME CARE DOCUMENTATION FORM, IMPORTANT VISIT INFORMATION Patient Instructions My [facility] Additional Instructions You were seen and evaluated today on an emergency basis only. This is not a substitute for, or an effort to provide, complete comprehensive medical care. It is not possible to recognize and treat all injuries or illnesses in a single emergency department visit. For this reason it is recommended that you followup with your primary care physician or neurologist this week for ongoing care and evaluation. DO NOT drive, drink alcohol, operate machinery, or perform dangerous activities today. You were given medications in the ER that can affect your ability to safely function or operate a vehicle. Rest today in a quiet, peaceful, dark environment and get a full 8-10 hrs of sleep tonight. Avoid loud noises, smoke/smoking, alcohol, bright lights, stress, or physical exertion today to minimize the chance the headache may return. Continue current medications. Ibuprofen(Motrin, Advil) may be used for fever or pain. Use 600mg every six hours as needed. Take with food. Avoid using more than 2400mg in a 24 hour period. Do not use 2400mg per day for more than three consecutive days without physician direction. Prolonged inappropriate use can lead to stomach upset or ulcers. (AND/OR) Acetaminophen(Tylenol) may be used for fever or pain. Use 1000mg every six hours as needed. Avoid using more than 4000mg in a 24 hour period. Return to the ER for passing out, worsening headache, vision problems, neck stiffness/pain, fevers, vomiting, worsening of your condition, or as needed.
== END 2017-05-05 22:44 | disposition home or self-care (01) ==
LOC: C.EDB 21:47
DX: G43.909 Migraine, unspecified, not intractable, without status migrainosus (principal); J45.909 Unspecified asthma, uncomplicated; J44.9 Chronic obstructive pulmonary disease, unspecified; K31.84 Gastroparesis; K58.9 Irritable bowel syndrome, unspecified; Z83.3 Family history of diabetes mellitus; Z80.9 Family history of malignant neoplasm, unspecified; Z83.79 Family history of other diseases of the digestive system; Z82.49 Family history of ischemic heart disease and other diseases of the circulatory system; Z84.1 Family history of disorders of kidney and ureter; F17.210 Nicotine dependence, cigarettes, uncomplicated; Z79.899 Other long term (current) drug therapy

== ENCOUNTER 2017-05-24 02:55 | Emergency (ER) | payer OTHER ==
[~2017-05-24] VITALS: Ht 171.5 cm; Wt 51.3 kg
[~2017-05-24 02:55] MED LIST changes: -BUPR-79 PO; -ONDA8TAB62 SL; +PROM25TA16 PO; +RANI150T2 PO; +TRAZ50TA35 PO; +WLLSR150 PO; +ZFRODT/8 PO
[2017-05-24 02:59] VITALS: TEMP 36.6; Ht 171.5 cm; Wt 51.3 kg
[2017-05-24] MEDS ORDERED: KETOROLAC TROMETHAMINE 60 MG/2 ML VIAL IM STA (03:13)
[2017-05-24 03:35] VITALS: BP 116/81; PULSE 80; O2SAT 97
--- NOTE | 2017-05-25 03:25 | EMERGENCY ROOM VISIT NOTE ---
History First contact with patient: 03:03 Chief Complaint: HEADACHE Stated Complaint: MIGRAINES History of Present Illness The patient is a 41 year old female who presents to the Emergency Room with complaints of migraine headache that began several days ago. The patient is well-known to this facility and is on a treatment plan of 2 shots per month. This is her second visit of the month for treatment. She does not describe this as the worst headache of her life. She has not had fever or chills. She is nauseated without vomiting. No neck pain, chest pain, or abdominal pain. She rates her discomfort a 10/10. Review of Systems More than 10 systems were reviewed and otherwise negative with the exception of history of present illness. Past Medical/Surgical History Medical Problems: (1) Asthma (2) Bronchitis (3) Chronic obstructive lung disease (4) emphysema (5) Gastroparesis (6) H/O endoscopy (7) Irritable Bowel Syndrome (8) Migraine (9) Removal of ovarian cyst Family History Diabetes mellitus FH: cancer FH: gallbladder disease FHx: heart disease Hypertension Kidney disease Kidney stones Social History Smoking Status: Current Every Day Smoker Alcohol Use: none Drug Use: none Marital Status: in relationship Housing Status: lives with family Occupation Status: unemployed Current/Historical Medications Scheduled Bromocriptine Mesylate (Bromocriptine Mesylate), 2.5 MG PO BID Bupropion HCl (Bupropion HCl Sr), 150 MG PO DAILY Magnesium Oxide (Mag-Ox), 400 MG PO DAILY Mirtazapine (Remeron), 15 MG PO HS Multivitamin (Multivitamin), 1 TAB PO DAILY Pantoprazole (Pantoprazole Sodium), 40 MG PO BID Polyethylene Glycol 3350 (Miralax), 34 GM PO DAILY Ranitidine HCl (Ranitidine HCl), 150 MG PO DAILY Riboflavin (Riboflavin), 400 MG PO DAILY Trazodone Hcl (Trazodone), 25 MG PO HS Scheduled PRN Albuterol Sulfate (Proair Respiclick), 2 PUFFS INH Q4H PRN for SOB/Wheezing Alum & Mag Hydrox-Simethicone (Maalox Advanced Maximum S), 1 DOSE PO UD PRN for Indigestion Calcium Carbonate (Tums), 500 MG PO UD PRN for Indigestion Ipratropium-Albuterol (Duoneb), 1 TREATMENT INH QID PRN for SOB/Wheezing Ondansetron (Ondansetron Odt), 8 MG PO Q8 PRN for Nausea Promethazine HCl (Promethazine HCl), 25 MG PO UD PRN for Nausea Physical Exam Vital Signs Date Time Temp Pulse Resp B/P (MAP) Pulse Ox O2 Delivery O2 Flow Rate FiO2 05/24/17 03:35 80 16 116/81 97 Room Air 05/24/17 02:59 36.6 103 20 125/81 99 Room Air Pain Rating (0-10): 10.0 Physical Exam VITALS: Vitals are noted on the nurse's note and reviewed by myself. Vital signs stable. GENERAL: Well-developed, well-nourished, white female, who is in no acute distress and resting comfortably. Patient is cooperative with the examination. HEAD: Normocephalic atraumatic. EARS: External ear normal. External auditory canals clear, tympanic membranes pearly perkins without erythema or effusion bilaterally. EYES: Pupils equal round and reactive to light and accommodation. Conjunctivae without injection, sclerae without icterus. Extraocular movements intact. NECK: Supple without nuchal rigidity. No lymphadenopathy. No thyromegaly. Cervical spine is nontender. HEART: Regular rate and rhythm without murmurs gallops or rubs. LUNGS: Clear to auscultation bilaterally without wheezes, rales or rhonchi. No retractions or accessory muscle use. ABDOMEN: Positive normal bowel sounds x 4. Soft, nontender, without masses or organomegaly. No guarding or rebound tenderness. MUSCULOSKELETAL: No muscle atrophy, erythema, or edema noted. Full range of motion without joint tenderness in all extremities. NEURO: Patient was alert and oriented to person place and time. CN II through XII grossly intact. Medical Decision & Procedures Medications Administered Medications (Trade) Dose Ordered Sig/Susan Route Start Time Stop Time Status Last Admin Dose Admin Ketorolac Tromethamine (Toradol Inj) 60 mg NOW STAT IM 05/24/17 03:13 05/24/17 03:14 DC 05/24/17 03:20 60 MG ED Course Physical exam and history were performed. Nursing notes, EMR, and Medication List were personally reviewed. Patient appears to have an acute exacerbation of her chronic migraine headaches. The patient is well-known to this facility. I saw the patient at her visit earlier this month and had a very lengthy and joon conversation with her regarding her treatment. Patient currently lives [place] [facility], roughly [address] from here. She has her primary care services in that area and follows with neurology in [place]. She does not have services locally and has completely moved from this area. Despite she continues to present twice monthly for narcotic medications for chronic headaches. At her visit earlier this month I explained to her that I would be recommending her for a no narcotic treatment plan. I discussed options of care with my attending physician, and we agree the patient will be transitioned to a no narcotic plan. I again explained to the patient that she would receive formal notification of this decision, and that we would no longer be providing her narcotic medications. The patient needs to follow with her appropriate specialists for care. The patient was given 60 mg IM Toradol for her symptoms. She was discharged with instructions as below. The chart was completed utilizing [employer] Speech Voice Recognition Software. Grammatical errors, random word insertions, pronoun errors, and incomplete sentences are an occasional consequence of this system due to software limitations, ambient noise, and hardware issues. Any formal questions or concerns about the content, text, or information contained within the body of this dictation should be directly addressed to the provider for clarification. . Medical Decision The differential diagnosis includes, but is not limited to: Drug seeking behavior, acute intracranial bleed, meningitis, encephalitis, mass or mass effect, sinusitis, infection, tumor, headache, temporal arteritis and carbon monoxide exposure, and migraine. Impression Primary Impression: Migraine Departure Information Dispostion Home / Self-Care Condition GOOD Referrals Fan Garcia M.D. (PCP) Forms HOME CARE DOCUMENTATION FORM, IMPORTANT VISIT INFORMATION Patient Instructions My [facility] Additional Instructions You were seen and evaluated today on an emergency basis only. This is not a substitute for, or an effort to provide, complete comprehensive medical care. It is not possible to recognize and treat all injuries or illnesses in a single emergency department visit. For this reason it is recommended that you followup with your primary care physician or neurologist this week for ongoing care and evaluation. The emergency department will not be providing narcotics for your ongoing and chronic migraines. You must follow with your specialist and your primary care physician for appropriate care. Rest today in a quiet, peaceful, dark environment and get a full 8-10 hrs of sleep tonight. Avoid loud noises, smoke/smoking, alcohol, bright lights, stress, or physical exertion today to minimize the chance the headache may return. Continue current medications. Ibuprofen(Motrin, Advil) may be used for fever or pain. Use 600mg every six hours as needed. Take with food. Avoid using more than 2400mg in a 24 hour period. Do not use 2400mg per day for more than three consecutive days without physician direction. Prolonged inappropriate use can lead to stomach upset or ulcers. (AND/OR) Acetaminophen(Tylenol) may be used for fever or pain. Use 1000mg every six hours as needed. Avoid using more than 4000mg in a 24 hour period. Return to the ER for passing out, worsening headache, vision problems, neck stiffness/pain, fevers, vomiting, worsening of your condition, or as needed.
== END 2017-05-24 03:35 | disposition home or self-care (01) ==
LOC: C.EDB 02:56 → C.EDA 03:35
DX: G43.909 Migraine, unspecified, not intractable, without status migrainosus (principal); J45.909 Unspecified asthma, uncomplicated; J44.9 Chronic obstructive pulmonary disease, unspecified; F17.200 Nicotine dependence, unspecified, uncomplicated; Z98.890 Other specified postprocedural states; Z83.3 Family history of diabetes mellitus; Z82.49 Family history of ischemic heart disease and other diseases of the circulatory system; Z84.1 Family history of disorders of kidney and ureter